=== PATIENT | female | born 1965 | race Caucasian/White ===

== ENCOUNTER 2020-04-02 08:02 | Inpatient (IN) | payer BC ==
[~2020-04-02] VITALS: Ht 162.6 cm; Wt 125.0 kg
--- NOTE | 2020-04-02 08:27 | PHYS DOC ---
Past Medical History Past Medical History: Seizure Past Medical History THYROID DISEASE Past Surgical History thyroidectomy Drug Use: None General Adult EDM: Chief Complaint: WEAKNESS/GENERALIZED HPI: HPI: Patient is a 54 year old female who presents with a 3-day history of progressive left lower extremity weakness. Patient states she had some discomfort in her left thigh but has been increasingly unable to use her left leg over the last 3 days. Patient states she is had intermittent symptoms like this in the past of past several years but resolve on their own. Patient denies any numbness or bowel or bladder incontinence patient denies any back pain or fevers. Patient denies any procedures on her back. Patient also describes some clumsiness with her right hand over the last 3 days. Patient denies any visual disturbance. Symptoms are worse with range of motion of the left leg. Review of Systems: Review of Systems: Constitutional: Denies fever or chills. [] Eyes: Denies change in visual acuity. [] HENT: Denies nasal congestion or sore throat. [] Respiratory: Denies cough or shortness of breath. [] Cardiovascular: Denies chest pain or edema. [] GI: Denies abdominal pain, nausea, vomiting, bloody stools or diarrhea. [] : Denies dysuria. [] Musculoskeletal: Denies back pain or joint pain. [] Integument: Denies rash. [] Neurologic: Denies headache, but has weakness in the left leg and clumsiness with right hand patient denies any sensory deficits, patient denies bowel or bladder incontinence Endocrine: Denies polyuria or polydipsia. [] Lymphatic: Denies swollen glands. [] Psychiatric: Denies depression or anxiety. [] Heart Score: Risk Factors: Risk Factors: DM, Current or recent (<one month) smoker, HTN, HLP, family history of CAD, obesity. Risk Scores: Score 0 - 3: 2.5% MACE over next 6 weeks - Discharge Home Score 4 - 6: 20.3% MACE over next 6 weeks - Admit for Clinical Observation Score 7 - 10: 72.7% MACE over next 6 weeks - Early Invasive Strategies Allergies: Allergies: Allergies Coded Allergies Type Severity Reaction Last Updated Verified metoclopramide Allergy Unknown 04/02/20 Yes Physical Exam: PE: Constitutional: Well developed, well nourished, no acute distress, non-toxic appearance. [] HENT: Normocephalic, atraumatic, bilateral external ears normal, no trismus nose normal. [] Eyes: PERRLA, EOMI, conjunctiva normal, no discharge. [] Neck: Normal range of motion, no tenderness, supple, no stridor. [] Cardiovascular:Heart rate regular rhythm, peripheral pulses intact, cap refill brisk Lungs & Thorax: Bilateral breath sounds clear, no respiratory distress Abdomen:, soft, no tenderness, no masses, no pulsatile masses. [] Skin: Warm, dry, no erythema, no rash. [] Back: No tenderness, no CVA tenderness. [] Extremities: No tenderness, no cyanosis, no clubbing, ROM intact, no edema. [] Neurologic: Alert and oriented X 3, weakness with dorsiflexion of the left foot, weakness in the right hand, normal sensory function, ataxia with the right hand Psychologic: Affect normal, judgement normal, mood normal. [] Current Patient Data: Labs: Laboratory Tests Test 04/02/20 08:20 White Blood Count 7.1 x10^3/uL Red Blood Count 5.51 x10^6/uL Hemoglobin 12.8 g/dL Hematocrit 39.0 % Mean Corpuscular Volume 71 fL Mean Corpuscular Hemoglobin 23 pg Mean Corpuscular Hemoglobin Concent 33 g/dL Red Cell Distribution Width 18.9 % Platelet Count 293 x10^3/uL Neutrophils (%) (Auto) 66 % Lymphocytes (%) (Auto) 24 % Monocytes (%) (Auto) 5 % Eosinophils (%) (Auto) 4 % Basophils (%) (Auto) 1 % Neutrophils # (Auto) 4.7 x10^3/uL Lymphocytes # (Auto) 1.7 x10^3/uL Monocytes # (Auto) 0.4 x10^3/uL Eosinophils # (Auto) 0.2 x10^3/uL Basophils # (Auto) 0.1 x10^3/uL Platelet Estimate Adequate Hypochromasia Present Microcytosis Present Sodium Level 139 mmol/L Potassium Level 3.8 mmol/L Chloride Level 101 mmol/L Carbon Dioxide Level 28 mmol/L Anion Gap 10 Blood Urea Nitrogen 11 mg/dL Creatinine 1.0 mg/dL Estimated GFR (Cockcroft-Gault) 58.2 BUN/Creatinine Ratio 11 Glucose Level 103 mg/dL Calcium Level 9.0 mg/dL Total Bilirubin 0.2 mg/dL Aspartate Amino Transf (AST/SGOT) 25 U/L Alanine Aminotransferase (ALT/SGPT) 37 U/L Alkaline Phosphatase 71 U/L Creatine Kinase 440 U/L Total Protein 7.8 g/dL Albumin 4.1 g/dL Albumin/Globulin Ratio 1.1 Thyroid Stimulating Hormone (TSH) 124.222 uIU/mL Current Medications Medications (Trade) Dose Ordered Sig/Jas Route PRN Reason Start Time Stop Time Status Last Admin Dose Admin Ondansetron HCl (Zofran) 4 mg PRN Q8HRS PRN IV NAUSEA/VOMITING 04/02/20 10:30 04/03/20 10:29 Vital Signs: Vital Signs Date Time Temp Pulse Resp B/P (MAP) Pulse Ox O2 Delivery O2 Flow Rate FiO2 04/02/20 08:13 98.7 88 20 181/107 (131) 94 Room Air 98.7 EKG: EKG: EKG interpreted by ky normal sinus rhythm with a rate of 78 normal axis normal intervals nonspecific ST changes [] Radiology/Procedures: Radiology/Procedures: [][facility] [address] [place] [address] IMAGING REPORT Signed PATIENT: ELIO MOLINA ACCOUNT: [id number] : 1965 LOCATION: ER AGE: 54 SEX: F EXAM STATUS: REG ER ORD. PHYSICIAN: ANASTACIA CHEATHAM MD REASON: left leg weakness PROCEDURE: PORTABLE CHEST 1V EXAM: CHEST 1 VIEW History: Left leg weakness COMPARISON: None available. TECHNIQUE: Single portable radiograph of the chest FINDINGS: The cardiac silhouette is unremarkable. The lungs are clear bilaterally. The costophrenic sulci are clear and well demarcated. IMPRESSION: No radiographic evidence of an acute cardiopulmonary process. Electronically signed by: Ravinder Ruth MD (04/02/2020 8:46 AM) [id number] DICTATED and SIGNED BY: RAVINDER RUTH MD DATE: 04/02/20 [id number] [place], [place] [id number] IMAGING REPORT Signed PATIENT: ELIO MOLINA ACCOUNT: [id number] : 1965 LOCATION: ER AGE: 54 SEX: F EXAM STATUS: REG ER ORD. PHYSICIAN: ANASTACIA CHEATHAM MD REASON: left leg weakness PROCEDURE: CT HEAD WO CONTRAST CT HEAD INDICATION: Reason: left leg weakness / Spl. Instructions: / History: COMPARISON: None Available. Exposure: One or more of the following individualized dose reduction techniques were utilized for this examination: 1. Automated exposure control 2. Adjustment of the mA and/or kV according to patient size 3. Use of iterative reconstruction technique TECHNIQUE: 5 mm contiguous axial images were obtained from the skull base to the vertex in both bone and soft tissue algorithm. FINDINGS: Minimal bilateral periventricular white matter hypodensities likely chronic small vessel ischemic disease. No evidence of acute intracranial hemorrhage. No extra-axial fluid collections. No mass effect or midline shift. Ventricular size is appropriate. Basal cisterns are patent. No fractures identified.Antoine-white differentiation is preserved.Globes and orbits are within normal limits. Paranasal sinuses and mastoid air cells are clear. IMPRESSION: No acute intracranial findings. Electronically signed by: Ravinder Ruth MD (04/02/2020 9:25 AM) [id number] DICTATED and SIGNED BY: RAVINDER RUTH MD DATE: 04/02/20924 Course & Med Decision Making: Course & Med Decision Making Pertinent Labs and Imaging studies reviewed. (See chart for details) [] 54-year-old female presents with left leg weakness as well as ataxia in the right hand. Patient found to have profound hypothyroidism as well. Patient has no fever to suggest epidural process I am concerned that the patient may have some degenerative neurological condition that may be causing her symptoms. Patient will be admitted to Dr. Burnette for consults placed with neurology. Anna Disclaimer: Anna Disclaimer: This electronic medical record was generated, in whole or in part, using a voice recognition dictation system. Departure Departure Impression: Primary Impression: Left leg weakness Additional Impression: HYPOTHYROIDISM, UNSPECIFIED Disposition: ADMITTED INPATIENT Admitting Physician: IVET (RUBA) Condition: STABLE Justicifation of Admission Dx: Justifications for Admission: Justification of Admission Dx: Yes Comments: HYPOTHYROIDISM, LEFT LEG WEAKNESS ANASTACIA CHEATHAM MD Apr 02, 2020 08:27
[2020-04-02 08:33] LABS: BASO # 0.1 x10^3/uL (0.0-0.2); BASO % 1 % (0-3); EOS # 0.2 x10^3/uL (0.0-0.7); EOS % 4 % (0-3); HEMOGLOBIN 12.8 g/dL (12.0-15.5); LYMPH # 1.7 x10^3/uL (1.0-4.8); LYMPH % 24 % (24-48); MEAN CORPUSCULAR HEMOGLOBIN 23 pg (25-35); MEAN CORPUSCULAR HGB CONC 33 g/dL (31-37); MEAN CORPUSCULAR VOLUME 71 fL (79-100); MONO # 0.4 x10^3/uL (0.0-1.1); MONO % 5 % (0-9); NEUT # 4.7 x10^3/uL (1.8-7.7); NEUT % 66 % (31-73); PLATELET COUNT 293 x10^3/uL (140-400); RED BLOOD COUNT 5.51 x10^6/uL (3.50-5.40); RED CELL DISTRIBUTION WIDTH 18.9 % (11.5-14.5); WHITE BLOOD COUNT 7.1 x10^3/uL (4.0-11.0)
[2020-04-02 08:46] LABS: GFR 58.2; POTASSIUM 3.8 mmol/L (3.5-5.1)
--- NOTE | 2020-04-02 08:49 | RAD ---
EXAM: CHEST 1 VIEW History: Left leg weakness COMPARISON: None available. TECHNIQUE: Single portable radiograph of the chest FINDINGS: The cardiac silhouette is unremarkable. The lungs are clear bilaterally. The costophrenic sulci are clear and well demarcated. IMPRESSION: No radiographic evidence of an acute cardiopulmonary process. Electronically signed by: Ravinder Ruth MD (04/02/2020 8:46 AM) [id number]
[2020-04-02 08:52] LABS: ALBUMIN 4.1 g/dL (3.4-5.0); ALBUMIN/GLOBULIN RATIO 1.1 (1.0-1.7); TOTAL BILIRUBIN 0.2 mg/dL (0.2-1.0); TOTAL PROTEIN 7.8 g/dL (6.4-8.2)
--- NOTE | 2020-04-02 09:28 | RAD ---
CT HEAD INDICATION: Reason: left leg weakness / Spl. Instructions: / History: COMPARISON: None Available. Exposure: One or more of the following individualized dose reduction techniques were utilized for this examination: 1. Automated exposure control 2. Adjustment of the mA and/or kV according to patient size 3. Use of iterative reconstruction technique TECHNIQUE: 5 mm contiguous axial images were obtained from the skull base to the vertex in both bone and soft tissue algorithm. FINDINGS: Minimal bilateral periventricular white matter hypodensities likely chronic small vessel ischemic disease. No evidence of acute intracranial hemorrhage. No extra-axial fluid collections. No mass effect or midline shift. Ventricular size is appropriate. Basal cisterns are patent. No fractures identified.Antoine-white differentiation is preserved.Globes and orbits are within normal limits. Paranasal sinuses and mastoid air cells are clear. IMPRESSION: No acute intracranial findings. Electronically signed by: Ravinder Ruth MD (04/02/2020 9:25 AM) [id number]
[2020-04-02 10:12] LABS: PLT ESTIMATE ADEQUATE (ADEQUATE)
[2020-04-02 10:13] LABS: HYPOCHROMIA PRESENT; MICROCYTOSIS PRESENT
[2020-04-02] MEDS ORDERED: ONDANSETRON PF 4 MG/2 ML VIAL. IV PRN (10:30)
[2020-04-02] MEDS ORDERED: DOCUSATE SODIUM 100 MG CAPSULE. PO PRN ×2 (14:15)
[2020-04-02] MEDS ORDERED: ONDANSETRON PF 4 MG/2 ML VIAL. IVP PRN (14:15)
[2020-04-02] MEDS ORDERED: DEXTROSE 50% 25 GM / 50ML DISP.SYRIN. IV PRN (14:15)
[2020-04-02] MEDS ORDERED: POTASSIUM CHLORIDE 10MEQ 100 ML IV SCH (14:15)
[2020-04-02] MEDS ORDERED: POTASSIUM CHLORIDE 10MEQ 100 ML IV PRN (14:15)
[2020-04-02] MEDS ORDERED: POTASSIUM CHLORIDE 20 MEQ TABLET.ER. PO PRN (14:15)
[2020-04-02] MEDS ORDERED: SENNOSIDES 8.6 MG TABLET PO PRN (14:15)
[2020-04-02] MEDS ORDERED: MAGNESIUM SULFATE 2GM 50 ML IV SCH (14:15)
--- NOTE | 2020-04-02 14:34 | PDOC1 ---
History and Physical Date of Service: DOS: DATE: 04/02/20 TIME: 14:20 Chief Complaint: Chief Complain: Worsening weakness of her left lower extremity History of Present Illness: HPI: Patient is a 54-year-old female with past medical history of hypothyroidism, goiter status post thyroidectomy, history of unprovoked seizures, who presents to the ED with a 3-day history of worsening weakness of her left lower extremity. Patient states that she has had on and off weakness of her left lower extremity that woke her and get worse but will spontaneously improve. This has been going on for the past 5 to 6 years however it has been becoming more frequent. Her last episode was in May 2019. Patient also experiences right hand weakness. She is unable to hold a pen. Patient does also endorse some unsteadiness during walking and feels like she is about to fall and bumped into objects around her house.Patient denies any numbness or bowel or bladder incontinence patient denies any back pain or fevers. Patient denies any procedures on her back. Patient denies any visual disturbance or diplopia. Denies risky sexual activity. She does endorse being and having 2 children. 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 Patient states that she does have compliance with her thyroid medication and she does take this in the morning before her meals. She does not recall if she is ever had iron deficiency anemia. There are no family history of celiac's disease or multiple sclerosis in the family. Patient was seen in the ED and she was having left lower leg weakness. Patient is able to flex her hip however she is unable to dorsi or plantarflex well with her left foot. 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 Patient's gait is unsteady. Romberg sign is negative Past Medical/Surgical History: PMH/PSH: Past Medical History: Seizure, hypothyroidism, Goiter Past Surgical History: thyroidectomy Allergies: Allergies: Coded Allergies: metoclopramide (Verified Allergy, Intermediate, 04/02/20) Family History: Family History: Reviewed and none reported Social History: Social History: Denies alcohol, drug, tobacco abuse. Current Medications: Current Medications Current Medications Ondansetron HCl (Zofran) 4 mg PRN Q8HRS PRN IV NAUSEA/VOMITING; Start 04/02/20 at 10:30; Stop 04/03/20 at 10:29 ROS: Review of Systems Review of System REVIEW OF SYSTEMS: GENERAL: Denies weakness SKIN: No bruising, hair changes or rashes. EYES: No blurred, double or loss of vision. NOSE AND THROAT: No history of nosebleeds, hoarseness or sore throat. HEART: No history of palpitations, chest pain or shortness of breath on exertion. LUNGS: Denies cough, hemoptysis, wheezing or shortness of breath. GASTROINTESTINAL: Denies changes in appetite, nausea, vomiting, diarrhea or constipation. GENITOURINARY: No history of frequency, urgency, hesitancy or nocturia. NEUROLOGIC: Denies history of numbness, tingling, or tremor. PSYCHIATRIC: No history of panic, anxiety or depression. ENDOCRINE: No history of heat or cold intolerance, polyuria or polydipsia. EXTREMITIES: Denies joint pain, pain on walking or stiffness. Physical Exam: Vital Signs: Vital Signs Date Time Temp Pulse Resp B/P (MAP) Pulse Ox O2 Delivery O2 Flow Rate FiO2 04/02/20 13:00 68 99 04/02/20 08:13 98.7 20 181/107 (131) Room Air 98.7 Physcial Exam: GEN: No apparent distress. Alert and oriented HEENT: Normal cephalic, atraumatic, external auditory canals are patent EYES: Extraocular muscles are intact, pupil are equally round and reactive to light and accommodation MUSCULOSKELETAL: Well developed , well nourished, good range of motion ENDOCRINE: No thyromegaly was palpated LYMPHATICS: No cervical chain or axillary nodes were noted HEMATOPOIETIC: No bruising NECK: Supple, no JVD, no thyromegaly was noted LUNGS: Clear to auscultation in all lung de jesus without rhonchi or wheezing HEART: RRR, S!, S2 present. Peripheral pulses intact, no obvious murmurs noted ABDOMEN: Soft, nontender. Positive bowel sounds, no organomegaly, normal bowel sounds EXTREMITIES: Without clubbing, cyanosis, or edema. Pedal pulses intact. Negative Homans sign NEUROLOGIC: Normal speech and tone. A&O x 3, Patient is able to flex her hip however she is unable to dorsi or plantarflex well with her left foot. 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 Patient's gait is unsteady. Romberg sign is negative PSYCHIATRIC: Normal affect, normal mood. Stable SKIN: No ulcerations or rashes, good skin turgor, no jaundice VASCULAR: Good capillary refill, neurovascular bundle appears to be intact Labs: Labs: Laboratory Tests Test 04/02/20 08:20 White Blood Count 7.1 x10^3/uL (4.0-11.0) Red Blood Count 5.51 x10^6/uL (3.50-5.40) Hemoglobin 12.8 g/dL (12.0-15.5) Hematocrit 39.0 % (36.0-47.0) Mean Corpuscular Volume 71 fL (79-100) Mean Corpuscular Hemoglobin 23 pg (25-35) Mean Corpuscular Hemoglobin Concent 33 g/dL (31-37) Red Cell Distribution Width 18.9 % (11.5-14.5) Platelet Count 293 x10^3/uL (140-400) Neutrophils (%) (Auto) 66 % (31-73) Lymphocytes (%) (Auto) 24 % (24-48) Monocytes (%) (Auto) 5 % (0-9) Eosinophils (%) (Auto) 4 % (0-3) Basophils (%) (Auto) 1 % (0-3) Neutrophils # (Auto) 4.7 x10^3/uL (1.8-7.7) Lymphocytes # (Auto) 1.7 x10^3/uL (1.0-4.8) Monocytes # (Auto) 0.4 x10^3/uL (0.0-1.1) Eosinophils # (Auto) 0.2 x10^3/uL (0.0-0.7) Basophils # (Auto) 0.1 x10^3/uL (0.0-0.2) Platelet Estimate Adequate (ADEQUATE) Hypochromasia Present Microcytosis Present Sodium Level 139 mmol/L (136-145) Potassium Level 3.8 mmol/L (3.5-5.1) Chloride Level 101 mmol/L (98-107) Carbon Dioxide Level 28 mmol/L (21-32) Anion Gap 10 (6-14) Blood Urea Nitrogen 11 mg/dL (7-20) Creatinine 1.0 mg/dL (0.6-1.0) Estimated GFR (Cockcroft-Gault) 58.2 BUN/Creatinine Ratio 11 (6-20) Glucose Level 103 mg/dL (70-99) Calcium Level 9.0 mg/dL (8.5-10.1) Total Bilirubin 0.2 mg/dL (0.2-1.0) Aspartate Amino Transf (AST/SGOT) 25 U/L (15-37) Alanine Aminotransferase (ALT/SGPT) 37 U/L (14-59) Alkaline Phosphatase 71 U/L (46-116) Creatine Kinase 440 U/L (26-192) Total Protein 7.8 g/dL (6.4-8.2) Albumin 4.1 g/dL (3.4-5.0) Albumin/Globulin Ratio 1.1 (1.0-1.7) Thyroid Stimulating Hormone (TSH) 124.222 uIU/mL (0.358-3.74) Laboratory Tests Test 04/02/20 08:20 White Blood Count 7.1 x10^3/uL (4.0-11.0) Red Blood Count 5.51 x10^6/uL (3.50-5.40) Hemoglobin 12.8 g/dL (12.0-15.5) Hematocrit 39.0 % (36.0-47.0) Mean Corpuscular Volume 71 fL (79-100) Mean Corpuscular Hemoglobin 23 pg (25-35) Mean Corpuscular Hemoglobin Concent 33 g/dL (31-37) Red Cell Distribution Width 18.9 % (11.5-14.5) Platelet Count 293 x10^3/uL (140-400) Neutrophils (%) (Auto) 66 % (31-73) Lymphocytes (%) (Auto) 24 % (24-48) Monocytes (%) (Auto) 5 % (0-9) Eosinophils (%) (Auto) 4 % (0-3) Basophils (%) (Auto) 1 % (0-3) Neutrophils # (Auto) 4.7 x10^3/uL (1.8-7.7) Lymphocytes # (Auto) 1.7 x10^3/uL (1.0-4.8) Monocytes # (Auto) 0.4 x10^3/uL (0.0-1.1) Eosinophils # (Auto) 0.2 x10^3/uL (0.0-0.7) Basophils # (Auto) 0.1 x10^3/uL (0.0-0.2) Platelet Estimate Adequate (ADEQUATE) Hypochromasia Present Microcytosis Present Sodium Level 139 mmol/L (136-145) Potassium Level 3.8 mmol/L (3.5-5.1) Chloride Level 101 mmol/L (98-107) Carbon Dioxide Level 28 mmol/L (21-32) Anion Gap 10 (6-14) Blood Urea Nitrogen 11 mg/dL (7-20) Creatinine 1.0 mg/dL (0.6-1.0) Estimated GFR (Cockcroft-Gault) 58.2 BUN/Creatinine Ratio 11 (6-20) Glucose Level 103 mg/dL (70-99) Calcium Level 9.0 mg/dL (8.5-10.1) Total Bilirubin 0.2 mg/dL (0.2-1.0) Aspartate Amino Transf (AST/SGOT) 25 U/L (15-37) Alanine Aminotransferase (ALT/SGPT) 37 U/L (14-59) Alkaline Phosphatase 71 U/L (46-116) Creatine Kinase 440 U/L (26-192) Total Protein 7.8 g/dL (6.4-8.2) Albumin 4.1 g/dL (3.4-5.0) Albumin/Globulin Ratio 1.1 (1.0-1.7) Thyroid Stimulating Hormone (TSH) 124.222 uIU/mL (0.358-3.74) Images: Images Head CT IMPRESSION: No acute intracranial findings. Assessment/Plan Assessment/Plan Acute left lower extremity and right hand weakness concerning for multiple sclerosis versus hypothyroid myopathy elevated TSH concerning for uncontrolled hypothyroidism versus malabsorption Elevated CK levels Admit to medicine for further management Neurology consult Pending T3 and T4 levels Pending cortisol levels Pending vitamin D levels Start levothyroxine at 175 mcg daily Lovenox for DVT prophylaxis Regular diet Full code Discussed with RN and SW Disposition inpatient care, pending neurology consult Surrogate decision maker is the Justifications for Admission Other Justification Left lower leg weakness and severe hypothyroidism PADILLA YEH MD Apr 02, 2020 14:34
[2020-04-02 15:00] VITALS: BP 150/94
[2020-04-02] MEDS ORDERED: ELECTROLYTE (NON-ICU) PROTOCOL MC PRN (15:00)
--- NOTE | 2020-04-02 16:30 | PDOC2 ---
NEUROLOGY CONSULT Date of Service DOS: DATE: 04/02/20 TIME: 16:22 Reason for Consult Reason for Consult: Left leg weakness Referring Physician Referring Physician: Dr. Burnette PCP: Dr. Garland Source Source: Chart review, Patient History of Present Illness History of Present Illness The patient is a 54-year-old right-handed female who for the past 3 days has had left leg weakness. She cannot move the left foot. She has noticed some clumsiness of the right hand. She has had episodes of left leg weakness dating back several years. She says that her primary physician checked her thyroid, but the patient has not seen any specialist regarding this problem nor has she had any imaging. She says that she has the weakness for up to several days and then it goes away on its own. This time the weakness is more profound and she is having trouble walking. There is no headache, diplopia, dysphagia, dysarthria, numbness, cognitive change, neck, or back pain. She does have a history of seizures, but her last seizure was several years ago and she is no longer on anticonvulsants. She does not remember what she took. She denies any stress in her life. There is no history of head injury. 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, no alcohol or street drugs Current Medications Current Medications Current Medications Ondansetron HCl (Zofran) 4 mg PRN Q8HRS PRN IV NAUSEA/VOMITING; Start 04/02/20 at 10:30; Stop 04/03/20 at 10:29 Sennosides (Senna) 17.2 mg PRN BID PRN PO CONSTIPATION; Start 04/02/20 at 14:15 Docusate Sodium (Colace) 100 mg PRN DAILY PRN PO HARD STOOLS; Start 04/02/20 at 14:15 Thiamine HCl 100 mg/Dextrose 51 ml @ 102 mls/hr DAILY IV ; Start 04/02/20 at 15:00 Ondansetron HCl (Zofran) 4 mg PRN Q6HRS PRN IVP NAUSEA/VOMITING; Start 04/02/20 at 14:15 Potassium Chloride (Klor-Con) 40 meq 1X PRN PO PER PROTOCOL; Start 04/02/20 at 14:15; Status UNV Magnesium Oxide (Magnesium Oxide) 400 mg BID PO ; Start 04/02/20 at 21:00; Stop 04/04/20 at 09:01; Status UNV Potassium Chloride/Water 100 ml @ 100 mls/hr Q1H IV ; Start 04/02/20 at 14:15; Stop 04/02/20 at 18:14; Status UNV Magnesium Sulfate 50 ml @ 25 mls/hr Q24H IV ; Start 04/02/20 at 14:15; Stop 04/04/20 at 16:14; Status UNV Potassium Chloride/Water 100 ml @ 100 mls/hr Q1H PRN IV low k; Start 04/02/20 at 14:15; Status UNV Dextrose (Dextrose 50%-Water Syringe) 12.5 gm PRN Q15MIN PRN IV SEE COMMENTS; Start 04/02/20 at 14:15 Acetaminophen (Tylenol) 650 mg PRN Q4HRS PRN PO TEMP OVER 100.4F OR MILD PAIN; Start 04/02/20 at 14:15 Docusate Sodium (Colace) 100 mg PRN BID PRN PO HARD STOOLS; Start 04/02/20 at 14:15 Levothyroxine Sodium (Synthroid) 175 mcg DAILY06 PO ; Start 04/03/20 at 06:00 Info (Non-Icu Electrolyte Protocol) 1 ea CONT PRN PRN MC SEE COMMENTS; Start 04/02/20 at 15:00 Allergies Allergies: Coded Allergies: metoclopramide (Verified Allergy, Intermediate, 04/02/20) ROS Review of System Negative for fever, chills, weight loss, shortness of breath, chest pain, katy gestion, hematochezia, melena, and dysuria. Full 14-point review of systems is negative. Physical Exam Physical Examination General: Well-developed, well-nourished white female in no acute distress HEENT: Normocephalic andatraumatic. Temporal arteriespulsatile and nontender. Neck: Supple without bruit, no meningismus Musculoskeletal: Stability:see neurologic. Gait exam:see neurologic. Tone:see neurologic.Strength:see neurologic. Neurological: Mental Status:intact, orientation, memory, attention span/concentration, language, fund of knowledge normal. Cranial Nerves:Pupils equal and reactive to light, extraocular movements areintact, visual de jesus are full to confrontation. Facial sensation is normal. There is no facial asymmetry. Vestibulo-ocular reflex is intact. Palate elevates and tongue protrudes in midline. All other cranial related problems are negative except as mentioned before.Reflexes:2+ and symmetric with flexor plantar responses. Motor:2-3/5 left foot weakness both dorsi and plantar flexion, but no drift of the left leg. In the right arm there is giveaway weakness of the right hand, no pronator drift. Strength is otherwise 5/5 strength with normal tone and bulk. Coordination:Finger-nose finger and [id number]-[id number] testing are normal. Rapid alternating movements and fine finger movements are intact. Gait:Consistent with left foot weakness, but very no circumduction. Sensory:Patchy loss, distal left lower extremity, circumferential with a sharp line of demarcation. Vitals VITALS Vital Signs Date Time Temp Pulse Resp B/P (MAP) Pulse Ox O2 Delivery O2 Flow Rate FiO2 04/02/20 14:39 76 98 04/02/20 08:13 98.7 20 181/107 (131) Room Air 98.7 Labs Labs Laboratory Tests Test 04/02/20 08:20 White Blood Count 7.1 x10^3/uL (4.0-11.0) Red Blood Count 5.51 x10^6/uL (3.50-5.40) Hemoglobin 12.8 g/dL (12.0-15.5) Hematocrit 39.0 % (36.0-47.0) Mean Corpuscular Volume 71 fL (79-100) Mean Corpuscular Hemoglobin 23 pg (25-35) Mean Corpuscular Hemoglobin Concent 33 g/dL (31-37) Red Cell Distribution Width 18.9 % (11.5-14.5) Platelet Count 293 x10^3/uL (140-400) Neutrophils (%) (Auto) 66 % (31-73) Lymphocytes (%) (Auto) 24 % (24-48) Monocytes (%) (Auto) 5 % (0-9) Eosinophils (%) (Auto) 4 % (0-3) Basophils (%) (Auto) 1 % (0-3) Neutrophils # (Auto) 4.7 x10^3/uL (1.8-7.7) Lymphocytes # (Auto) 1.7 x10^3/uL (1.0-4.8) Monocytes # (Auto) 0.4 x10^3/uL (0.0-1.1) Eosinophils # (Auto) 0.2 x10^3/uL (0.0-0.7) Basophils # (Auto) 0.1 x10^3/uL (0.0-0.2) Platelet Estimate Adequate (ADEQUATE) Hypochromasia Present Microcytosis Present Sodium Level 139 mmol/L (136-145) Potassium Level 3.8 mmol/L (3.5-5.1) Chloride Level 101 mmol/L (98-107) Carbon Dioxide Level 28 mmol/L (21-32) Anion Gap 10 (6-14) Blood Urea Nitrogen 11 mg/dL (7-20) Creatinine 1.0 mg/dL (0.6-1.0) Estimated GFR (Cockcroft-Gault) 58.2 BUN/Creatinine Ratio 11 (6-20) Glucose Level 103 mg/dL (70-99) Calcium Level 9.0 mg/dL (8.5-10.1) Total Bilirubin 0.2 mg/dL (0.2-1.0) Aspartate Amino Transf (AST/SGOT) 25 U/L (15-37) Alanine Aminotransferase (ALT/SGPT) 37 U/L (14-59) Alkaline Phosphatase 71 U/L (46-116) Creatine Kinase 440 U/L (26-192) Total Protein 7.8 g/dL (6.4-8.2) Albumin 4.1 g/dL (3.4-5.0) Albumin/Globulin Ratio 1.1 (1.0-1.7) Thyroid Stimulating Hormone (TSH) 124.222 uIU/mL (0.358-3.74) Laboratory Tests Test 04/02/20 08:20 White Blood Count 7.1 x10^3/uL (4.0-11.0) Red Blood Count 5.51 x10^6/uL (3.50-5.40) Hemoglobin 12.8 g/dL (12.0-15.5) Hematocrit 39.0 % (36.0-47.0) Mean Corpuscular Volume 71 fL (79-100) Mean Corpuscular Hemoglobin 23 pg (25-35) Mean Corpuscular Hemoglobin Concent 33 g/dL (31-37) Red Cell Distribution Width 18.9 % (11.5-14.5) Platelet Count 293 x10^3/uL (140-400) Neutrophils (%) (Auto) 66 % (31-73) Lymphocytes (%) (Auto) 24 % (24-48) Monocytes (%) (Auto) 5 % (0-9) Eosinophils (%) (Auto) 4 % (0-3) Basophils (%) (Auto) 1 % (0-3) Neutrophils # (Auto) 4.7 x10^3/uL (1.8-7.7) Lymphocytes # (Auto) 1.7 x10^3/uL (1.0-4.8) Monocytes # (Auto) 0.4 x10^3/uL (0.0-1.1) Eosinophils # (Auto) 0.2 x10^3/uL (0.0-0.7) Basophils # (Auto) 0.1 x10^3/uL (0.0-0.2) Platelet Estimate Adequate (ADEQUATE) Hypochromasia Present Microcytosis Present Sodium Level 139 mmol/L (136-145) Potassium Level 3.8 mmol/L (3.5-5.1) Chloride Level 101 mmol/L (98-107) Carbon Dioxide Level 28 mmol/L (21-32) Anion Gap 10 (6-14) Blood Urea Nitrogen 11 mg/dL (7-20) Creatinine 1.0 mg/dL (0.6-1.0) Estimated GFR (Cockcroft-Gault) 58.2 BUN/Creatinine Ratio 11 (6-20) Glucose Level 103 mg/dL (70-99) Calcium Level 9.0 mg/dL (8.5-10.1) Total Bilirubin 0.2 mg/dL (0.2-1.0) Aspartate Amino Transf (AST/SGOT) 25 U/L (15-37) Alanine Aminotransferase (ALT/SGPT) 37 U/L (14-59) Alkaline Phosphatase 71 U/L (46-116) Creatine Kinase 440 U/L (26-192) Total Protein 7.8 g/dL (6.4-8.2) Albumin 4.1 g/dL (3.4-5.0) Albumin/Globulin Ratio 1.1 (1.0-1.7) Thyroid Stimulating Hormone (TSH) 124.222 uIU/mL (0.358-3.74) Images Images CT HEAD INDICATION: Reason: left leg weakness / Spl. Instructions: / History: COMPARISON: None Available. Exposure: One or more of the following individualized dose reduction techniques were utilized for this examination: 1. Automated exposure control 2. Adjustment of the mA and/or kV according to patient size 3. Use of iterative reconstruction technique TECHNIQUE: 5 mm contiguous axial images were obtained from the skull base to the vertex in both bone and soft tissue algorithm. FINDINGS: Minimal bilateral periventricular white matter hypodensities likely chronic small vessel ischemic disease. No evidence of acute intracranial hemorrhage. No extra-axial fluid collections. No mass effect or midline shift. Ventricular size is appropriate. Basal cisterns are patent. No fractures identified.Antoine-white differentiation is preserved.Globes and orbits are within normal limits. Paranasal sinuses and mastoid air cells are clear. IMPRESSION: No acute intracranial findings. Assessment/Plan Assessment/Plan Impression: Right hand weakness and clumsiness, left foot weakness, hard to reconcile this on the basis of any organic neurological issue. Multiple sclerosis needs to be excluded. Multiple entrapment neuropathies are possible but unlikely to occur simultaneously and wax and wane for a few days at a time over several years. I find no evidence of cervical or lumbar radiculopathy, myelopathy, peripheral neuropathy. The distribution of weakness in the left foot is unusual. Note normal head CT. However, she is profoundly hypothyroid which can mimic all sorts of neurological issues. History of seizures, resolved. Recommendations: I will start with an MRI of the brain and make further work-up recommendations after that. As the symptoms have been going on for a few days, the MRI can be done on a routine basis, tomorrow if necessary Additional laboratory studies Rehabilitation modalities Treatment of hypothyroidism Thank you for letting me help with the patient's care. LUCY JACKSON MD Apr 02, 2020 16:30
[2020-04-02] MEDS: THIAMINE INJ 100 MG in IV DEXTROSE 5% 50 ML IV SCH (18:07)
[2020-04-02 19:00] VITALS: BP 131/83
[2020-04-02] MEDS ORDERED: MAGNESIUM OXIDE 400 MG TABLET PO SCH (21:00)
[2020-04-02 23:00] VITALS: BP 102/59
[2020-04-03 03:00] VITALS: BP 99/60
[2020-04-03 06:08] LABS: BASO # 0.1 x10^3/uL (0.0-0.2); BASO % 1 % (0-3); EOS # 0.3 x10^3/uL (0.0-0.7); EOS % 4 % (0-3); HEMATOCRIT 35.6 % (36.0-47.0); HEMOGLOBIN 11.5 g/dL (12.0-15.5); LYMPH # 2.3 x10^3/uL (1.0-4.8); LYMPH % 36 % (24-48); MEAN CORPUSCULAR HEMOGLOBIN 23 pg (25-35); MEAN CORPUSCULAR HGB CONC 32 g/dL (31-37); MEAN CORPUSCULAR VOLUME 71 fL (79-100); MONO # 0.3 x10^3/uL (0.0-1.1); MONO % 5 % (0-9); NEUT # 3.4 x10^3/uL (1.8-7.7); NEUT % 53 % (31-73); PLATELET COUNT 254 x10^3/uL (140-400); RED BLOOD COUNT 5.03 x10^6/uL (3.50-5.40); RED CELL DISTRIBUTION WIDTH 19.1 % (11.5-14.5); WHITE BLOOD COUNT 6.4 x10^3/uL (4.0-11.0)
[2020-04-03 06:10] LABS: CALCIUM 8.2 mg/dL (8.5-10.1); CREATININE 0.9 mg/dL (0.6-1.0); GFR 65.8; MAGNESIUM 2.4 mg/dL (1.8-2.4); POTASSIUM 3.6 mmol/L (3.5-5.1)
[2020-04-03] MEDS: LEVOTHYROXINE 175 MCG TABLET PO SCH (06:29)
[2020-04-03 07:00] VITALS: BP 120/57
--- NOTE | 2020-04-03 07:23 | PDOC ---
PROGRESS NOTES Date of Service: DATE: 04/03/20 TIME: 07:22 Chief Complaint Chief Complaint Images: Images Head CT IMPRESSION: No acute intracranial findings. impression Acute left lower extremity and right hand weakness concerning for multiple sclerosis versus hypothyroid myopathy elevated TSH, extreme , concerning for uncontrolled hypothyroidism versus malabsorption Elevated CK levels possible multiple sclerosis myxedema MICROCYTIC ANEMIA plan Admit to medicine for further management Neurology consult note T3 and T4 levels Pending cortisol levels Pending vitamin D levels Start levothyroxine at 175 mcg daily Lovenox for DVT prophylaxis Regular diet Full code Discussed with RN and JEREMIAS MRI HEAD IRON PANEL ESR SU GUIAC STOOLS GI CONSULT ALDOLASE Disposition inpatient care, pending neurology consult Surrogate decision maker is the NEEDS DPOA, POA REG ADMIT 38 min pt exam, chart review, > 50% of time spent with exam, chart review, pt care coordination Justifications for Admission Justifications for Admission Other Justification Left lower leg weakness and severe hypothyroidism History of Present Illness History of Present Illness Chief Complaint: Chief Complain: Worsening weakness of her left lower extremity History of Present Illness: HPI: Patient is a 54-year-old female with past medical history of hypothyroidism, goiter status post thyroidectomy, history of unprovoked seizures, who presents to the ED with a 3-day history of worsening weakness of her left lower extremity. Patient states that she has had on and off weakness of her left lower extremity that woke her and get worse but will spontaneously improve. This has been going on for the past 5 to 6 years however it has been becoming more frequent. Her last episode was in May 2019. Patient also experiences right hand weakness. She is unable to hold a pen. Patient does also endorse some unsteadiness during walking and feels like she is about to fall and bumped into objects around her house.Patient denies any numbness or bowel or bladder incontinence patient denies any back pain or fevers. Patient denies any procedures on her back. Patient denies any visual disturbance or diplopia. Denies risky sexual activity. She does endorse being and having 2 children. 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 Patient states that she does have compliance with her thyroid medication and she does take this in the morning before her meals. She does not recall if she is ever had iron deficiency anemia. There are no family history of celiac's disease or multiple sclerosis in the family. Patient was seen in the ED and she was having left lower leg weakness. Patient is able to flex her hip however she is unable to dorsi or plantarflex well with her left foot. 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 Patient's gait is unsteady. Romberg sign is negative Past Medical/Surgical History: PMH/PSH: Past Medical History: Seizure, hypothyroidism, Goiter Past Surgical History: thyroidectomy Allergies: Allergies: Coded Allergies: metoclopramide (Verified Allergy, Intermediate, 04/02/20) Family History: Family History: obesity Social History: Social History: Denies alcohol, drug, tobacco abuse. Vitals Vitals Vital Signs Date Time Temp Pulse Resp B/P (MAP) Pulse Ox O2 Delivery O2 Flow Rate FiO2 04/03/20 03:00 97.7 73 18 99/60 (73) 96 Room Air 97.7 Physical Exam Physical Exam GEN: No apparent distress. Alert and oriented HEENT: Normal cephalic, atraumatic, external auditory canals are patent EYES: Extraocular muscles are intact, pupil are equally round and reactive to light and accommodation MUSCULOSKELETAL: Well developed , well nourished, good range of motion ENDOCRINE: No thyromegaly was palpated LYMPHATICS: No cervical chain or axillary nodes were noted HEMATOPOIETIC: No bruising NECK: Supple, no JVD, no thyromegaly was noted LUNGS: Clear to auscultation in all lung de jesus without rhonchi or wheezing HEART: RRR, S!, S2 present. Peripheral pulses intact, no obvious murmurs noted ABDOMEN: Soft, nontender. Positive bowel sounds, no organomegaly, normal bowel sounds EXTREMITIES: NO ,clubbing, cyanosis, MILD edema. Pedal pulses intact. Negative Homans sign NEUROLOGIC: Normal speech and tone. A&O x 3, Patient is able to flex her hip however she is unable to dorsi or plantarflex well with her left foot. 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 Patient's gait is unsteady. Romberg sign is negative PSYCHIATRIC: Normal affect, normal mood. Stable SKIN: No ulcerations or rashes, good skin turgor, no jaundice VASCULAR: Good capillary refill, neurovascular bundle appears to be intact General: Cooperative, mild distress Lungs: Clear Abdomen: Soft, No tenderness Extremities: No clubbing, No cyanosis Labs LABS EXAM: CHEST 1 VIEW History: Left leg weakness COMPARISON: None available. TECHNIQUE: Single portable radiograph of the chest FINDINGS: The cardiac silhouette is unremarkable. The lungs are clear bilaterally. The costophrenic sulci are clear and well demarcated. IMPRESSION: No radiographic evidence of an acute cardiopulmonary process. Electronically signed by: Ravinder Ruth MD (04/02/2020 8:46 AM) [id number] DICTATED and SIGNED BY: RAVINDER RUTH MD CT HEAD INDICATION: Reason: left leg weakness / Spl. Instructions: / History: COMPARISON: None Available. Exposure: One or more of the following individualized dose reduction techniques were utilized for this examination: 1. Automated exposure control 2. Adjustment of the mA and/or kV according to patient size 3. Use of iterative reconstruction technique TECHNIQUE: 5 mm contiguous axial images were obtained from the skull base to the vertex in both bone and soft tissue algorithm. FINDINGS: Minimal bilateral periventricular white matter hypodensities likely chronic small vessel ischemic disease. No evidence of acute intracranial hemorrhage. No extra-axial fluid collections. No mass effect or midline shift. Ventricular size is appropriate. Basal cisterns are patent. No fractures identified.Antoine-white differentiation is preserved.Globes and orbits are within normal limits. Paranasal sinuses and mastoid air cells are clear. IMPRESSION: No acute intracranial findings. Electronically signed by: Ravinder Ruth MD (04/02/2020 9:25 AM) [id number] DICTATED and SIGNED BY: RAVINDER RUTH MD Laboratory Tests Test 04/02/20 08:20 04/02/20 15:15 04/03/20 04:55 White Blood Count 7.1 x10^3/uL (4.0-11.0) 6.4 x10^3/uL (4.0-11.0) Red Blood Count 5.51 x10^6/uL (3.50-5.40) 5.03 x10^6/uL (3.50-5.40) Hemoglobin 12.8 g/dL (12.0-15.5) 11.5 g/dL (12.0-15.5) Hematocrit 39.0 % (36.0-47.0) 35.6 % (36.0-47.0) Mean Corpuscular Volume 71 fL (79-100) 71 fL (79-100) Mean Corpuscular Hemoglobin 23 pg (25-35) 23 pg (25-35) Mean Corpuscular Hemoglobin Concent 33 g/dL (31-37) 32 g/dL (31-37) Red Cell Distribution Width 18.9 % (11.5-14.5) 19.1 % (11.5-14.5) Platelet Count 293 x10^3/uL (140-400) 254 x10^3/uL (140-400) Neutrophils (%) (Auto) 66 % (31-73) 53 % (31-73) Lymphocytes (%) (Auto) 24 % (24-48) 36 % (24-48) Monocytes (%) (Auto) 5 % (0-9) 5 % (0-9) Eosinophils (%) (Auto) 4 % (0-3) 4 % (0-3) Basophils (%) (Auto) 1 % (0-3) 1 % (0-3) Neutrophils # (Auto) 4.7 x10^3/uL (1.8-7.7) 3.4 x10^3/uL (1.8-7.7) Lymphocytes # (Auto) 1.7 x10^3/uL (1.0-4.8) 2.3 x10^3/uL (1.0-4.8) Monocytes # (Auto) 0.4 x10^3/uL (0.0-1.1) 0.3 x10^3/uL (0.0-1.1) Eosinophils # (Auto) 0.2 x10^3/uL (0.0-0.7) 0.3 x10^3/uL (0.0-0.7) Basophils # (Auto) 0.1 x10^3/uL (0.0-0.2) 0.1 x10^3/uL (0.0-0.2) Platelet Estimate Adequate (ADEQUATE) Hypochromasia Present Microcytosis Present Sodium Level 139 mmol/L (136-145) 140 mmol/L (136-145) Potassium Level 3.8 mmol/L (3.5-5.1) 3.6 mmol/L (3.5-5.1) Chloride Level 101 mmol/L (98-107) 104 mmol/L (98-107) Carbon Dioxide Level 28 mmol/L (21-32) 28 mmol/L (21-32) Anion Gap 10 (6-14) 8 (6-14) Blood Urea Nitrogen 11 mg/dL (7-20) 11 mg/dL (7-20) Creatinine 1.0 mg/dL (0.6-1.0) 0.9 mg/dL (0.6-1.0) Estimated GFR (Cockcroft-Gault) 58.2 65.8 BUN/Creatinine Ratio 11 (6-20) Glucose Level 103 mg/dL (70-99) 99 mg/dL (70-99) Calcium Level 9.0 mg/dL (8.5-10.1) 8.2 mg/dL (8.5-10.1) Total Bilirubin 0.2 mg/dL (0.2-1.0) Aspartate Amino Transf (AST/SGOT) 25 U/L (15-37) Alanine Aminotransferase (ALT/SGPT) 37 U/L (14-59) Alkaline Phosphatase 71 U/L (46-116) Creatine Kinase 440 U/L (26-192) Total Protein 7.8 g/dL (6.4-8.2) Albumin 4.1 g/dL (3.4-5.0) Albumin/Globulin Ratio 1.1 (1.0-1.7) Thyroid Stimulating Hormone (TSH) 124.222 uIU/mL (0.358-3.74) Ferritin 5 ng/mL (8-252) Vitamin B12 Level 273 pg/mL (247-911) 25-Hydroxy Vitamin D Total 12.3 ng/mL (30-100) Free Thyroxine 0.20 ng/dL (0.76-1.46) Free Triiodothyronine (T3) pg/mL < 0.50 pg/mL (2.18-3.98) Total Triiodothyronine <20 ng/dL (71-180) HIV (1&2) Antibody Screen Nonreactive (Nonreactive) Phosphorus Level 4.0 mg/dL (2.6-4.7) Magnesium Level 2.4 mg/dL (1.8-2.4) C-Reactive Protein, Quantitative 2.1 mg/L (0-3.3) Assessment and Plan Assessmemt and Plan Problems Medical Problems: (1) E03.9 Status: Acute (2) Left leg weakness Status: Acute Comment Review of Relevant I have reviewed the following items cuong (where applicable) has been applied. Labs Laboratory Tests Test 04/02/20 08:20 04/02/20 15:15 04/03/20 04:55 White Blood Count 7.1 x10^3/uL (4.0-11.0) 6.4 x10^3/uL (4.0-11.0) Red Blood Count 5.51 x10^6/uL (3.50-5.40) 5.03 x10^6/uL (3.50-5.40) Hemoglobin 12.8 g/dL (12.0-15.5) 11.5 g/dL (12.0-15.5) Hematocrit 39.0 % (36.0-47.0) 35.6 % (36.0-47.0) Mean Corpuscular Volume 71 fL (79-100) 71 fL (79-100) Mean Corpuscular Hemoglobin 23 pg (25-35) 23 pg (25-35) Mean Corpuscular Hemoglobin Concent 33 g/dL (31-37) 32 g/dL (31-37) Red Cell Distribution Width 18.9 % (11.5-14.5) 19.1 % (11.5-14.5) Platelet Count 293 x10^3/uL (140-400) 254 x10^3/uL (140-400) Neutrophils (%) (Auto) 66 % (31-73) 53 % (31-73) Lymphocytes (%) (Auto) 24 % (24-48) 36 % (24-48) Monocytes (%) (Auto) 5 % (0-9) 5 % (0-9) Eosinophils (%) (Auto) 4 % (0-3) 4 % (0-3) Basophils (%) (Auto) 1 % (0-3) 1 % (0-3) Neutrophils # (Auto) 4.7 x10^3/uL (1.8-7.7) 3.4 x10^3/uL (1.8-7.7) Lymphocytes # (Auto) 1.7 x10^3/uL (1.0-4.8) 2.3 x10^3/uL (1.0-4.8) Monocytes # (Auto) 0.4 x10^3/uL (0.0-1.1) 0.3 x10^3/uL (0.0-1.1) Eosinophils # (Auto) 0.2 x10^3/uL (0.0-0.7) 0.3 x10^3/uL (0.0-0.7) Basophils # (Auto) 0.1 x10^3/uL (0.0-0.2) 0.1 x10^3/uL (0.0-0.2) Platelet Estimate Adequate (ADEQUATE) Hypochromasia Present Microcytosis Present Sodium Level 139 mmol/L (136-145) 140 mmol/L (136-145) Potassium Level 3.8 mmol/L (3.5-5.1) 3.6 mmol/L (3.5-5.1) Chloride Level 101 mmol/L (98-107) 104 mmol/L (98-107) Carbon Dioxide Level 28 mmol/L (21-32) 28 mmol/L (21-32) Anion Gap 10 (6-14) 8 (6-14) Blood Urea Nitrogen 11 mg/dL (7-20) 11 mg/dL (7-20) Creatinine 1.0 mg/dL (0.6-1.0) 0.9 mg/dL (0.6-1.0) Estimated GFR (Cockcroft-Gault) 58.2 65.8 BUN/Creatinine Ratio 11 (6-20) Glucose Level 103 mg/dL (70-99) 99 mg/dL (70-99) Calcium Level 9.0 mg/dL (8.5-10.1) 8.2 mg/dL (8.5-10.1) Total Bilirubin 0.2 mg/dL (0.2-1.0) Aspartate Amino Transf (AST/SGOT) 25 U/L (15-37) Alanine Aminotransferase (ALT/SGPT) 37 U/L (14-59) Alkaline Phosphatase 71 U/L (46-116) Creatine Kinase 440 U/L (26-192) Total Protein 7.8 g/dL (6.4-8.2) Albumin 4.1 g/dL (3.4-5.0) Albumin/Globulin Ratio 1.1 (1.0-1.7) Thyroid Stimulating Hormone (TSH) 124.222 uIU/mL (0.358-3.74) Ferritin 5 ng/mL (8-252) Vitamin B12 Level 273 pg/mL (247-911) 25-Hydroxy Vitamin D Total 12.3 ng/mL (30-100) Free Thyroxine 0.20 ng/dL (0.76-1.46) Free Triiodothyronine (T3) pg/mL < 0.50 pg/mL (2.18-3.98) Total Triiodothyronine <20 ng/dL (71-180) HIV (1&2) Antibody Screen Nonreactive (Nonreactive) Phosphorus Level 4.0 mg/dL (2.6-4.7) Magnesium Level 2.4 mg/dL (1.8-2.4) C-Reactive Protein, Quantitative 2.1 mg/L (0-3.3) Laboratory Tests Test 04/02/20 08:20 04/02/20 15:15 04/03/20 04:55 White Blood Count 7.1 x10^3/uL (4.0-11.0) 6.4 x10^3/uL (4.0-11.0) Red Blood Count 5.51 x10^6/uL (3.50-5.40) 5.03 x10^6/uL (3.50-5.40) Hemoglobin 12.8 g/dL (12.0-15.5) 11.5 g/dL (12.0-15.5) Hematocrit 39.0 % (36.0-47.0) 35.6 % (36.0-47.0) Mean Corpuscular Volume 71 fL (79-100) 71 fL (79-100) Mean Corpuscular Hemoglobin 23 pg (25-35) 23 pg (25-35) Mean Corpuscular Hemoglobin Concent 33 g/dL (31-37) 32 g/dL (31-37) Red Cell Distribution Width 18.9 % (11.5-14.5) 19.1 % (11.5-14.5) Platelet Count 293 x10^3/uL (140-400) 254 x10^3/uL (140-400) Neutrophils (%) (Auto) 66 % (31-73) 53 % (31-73) Lymphocytes (%) (Auto) 24 % (24-48) 36 % (24-48) Monocytes (%) (Auto) 5 % (0-9) 5 % (0-9) Eosinophils (%) (Auto) 4 % (0-3) 4 % (0-3) Basophils (%) (Auto) 1 % (0-3) 1 % (0-3) Neutrophils # (Auto) 4.7 x10^3/uL (1.8-7.7) 3.4 x10^3/uL (1.8-7.7) Lymphocytes # (Auto) 1.7 x10^3/uL (1.0-4.8) 2.3 x10^3/uL (1.0-4.8) Monocytes # (Auto) 0.4 x10^3/uL (0.0-1.1) 0.3 x10^3/uL (0.0-1.1) Eosinophils # (Auto) 0.2 x10^3/uL (0.0-0.7) 0.3 x10^3/uL (0.0-0.7) Basophils # (Auto) 0.1 x10^3/uL (0.0-0.2) 0.1 x10^3/uL (0.0-0.2) Platelet Estimate Adequate (ADEQUATE) Hypochromasia Present Microcytosis Present Sodium Level 139 mmol/L (136-145) 140 mmol/L (136-145) Potassium Level 3.8 mmol/L (3.5-5.1) 3.6 mmol/L (3.5-5.1) Chloride Level 101 mmol/L (98-107) 104 mmol/L (98-107) Carbon Dioxide Level 28 mmol/L (21-32) 28 mmol/L (21-32) Anion Gap 10 (6-14) 8 (6-14) Blood Urea Nitrogen 11 mg/dL (7-20) 11 mg/dL (7-20) Creatinine 1.0 mg/dL (0.6-1.0) 0.9 mg/dL (0.6-1.0) Estimated GFR (Cockcroft-Gault) 58.2 65.8 BUN/Creatinine Ratio 11 (6-20) Glucose Level 103 mg/dL (70-99) 99 mg/dL (70-99) Calcium Level 9.0 mg/dL (8.5-10.1) 8.2 mg/dL (8.5-10.1) Total Bilirubin 0.2 mg/dL (0.2-1.0) Aspartate Amino Transf (AST/SGOT) 25 U/L (15-37) Alanine Aminotransferase (ALT/SGPT) 37 U/L (14-59) Alkaline Phosphatase 71 U/L (46-116) Creatine Kinase 440 U/L (26-192) Total Protein 7.8 g/dL (6.4-8.2) Albumin 4.1 g/dL (3.4-5.0) Albumin/Globulin Ratio 1.1 (1.0-1.7) Thyroid Stimulating Hormone (TSH) 124.222 uIU/mL (0.358-3.74) Ferritin 5 ng/mL (8-252) Vitamin B12 Level 273 pg/mL (247-911) 25-Hydroxy Vitamin D Total 12.3 ng/mL (30-100) Free Thyroxine 0.20 ng/dL (0.76-1.46) Free Triiodothyronine (T3) pg/mL < 0.50 pg/mL (2.18-3.98) Total Triiodothyronine <20 ng/dL (71-180) HIV (1&2) Antibody Screen Nonreactive (Nonreactive) Phosphorus Level 4.0 mg/dL (2.6-4.7) Magnesium Level 2.4 mg/dL (1.8-2.4) C-Reactive Protein, Quantitative 2.1 mg/L (0-3.3) Medications Current Medications Ondansetron HCl (Zofran) 4 mg PRN Q8HRS PRN IV NAUSEA/VOMITING; Start 04/02/20 at 10:30; Stop 04/03/20 at 10:29 Sennosides (Senna) 17.2 mg PRN BID PRN PO CONSTIPATION; Start 04/02/20 at 14:15 Docusate Sodium (Colace) 100 mg PRN DAILY PRN PO HARD STOOLS; Start 04/02/20 at 14:15 Thiamine HCl 100 mg/Dextrose 51 ml @ 102 mls/hr DAILY IV Last administered on 04/02/20at 18:07; Start 04/02/20 at 15:00 Ondansetron HCl (Zofran) 4 mg PRN Q6HRS PRN IVP NAUSEA/VOMITING; Start 04/02/20 at 14:15 Potassium Chloride (Klor-Con) 40 meq 1X PRN PO PER PROTOCOL; Start 04/02/20 at 14:15; Status UNV Magnesium Oxide (Magnesium Oxide) 400 mg BID PO ; Start 04/02/20 at 21:00; Stop 04/04/20 at 09:01; Status UNV Potassium Chloride/Water 100 ml @ 100 mls/hr Q1H IV ; Start 04/02/20 at 14:15; Stop 04/02/20 at 18:14; Status UNV Magnesium Sulfate 50 ml @ 25 mls/hr Q24H IV ; Start 04/02/20 at 14:15; Stop 04/04/20 at 16:14; Status UNV Potassium Chloride/Water 100 ml @ 100 mls/hr Q1H PRN IV low k; Start 04/02/20 at 14:15; Status UNV Dextrose (Dextrose 50%-Water Syringe) 12.5 gm PRN Q15MIN PRN IV SEE COMMENTS; Start 04/02/20 at 14:15 Acetaminophen (Tylenol) 650 mg PRN Q4HRS PRN PO TEMP OVER 100.4F OR MILD PAIN; Start 04/02/20 at 14:15 Docusate Sodium (Colace) 100 mg PRN BID PRN PO HARD STOOLS; Start 04/02/20 at 14:15 Levothyroxine Sodium (Synthroid) 175 mcg DAILY06 PO Last administered on 04/03/20at 06:29; Start 04/03/20 at 06:00 Info (Non-Icu Electrolyte Protocol) 1 ea CONT PRN PRN MC SEE COMMENTS; Start 04/02/20 at 15:00 Vitals/I & O Vital Sign - Last 24 Hours 04/02/20 04/02/20 04/02/20 04/02/20 08:13 08:30 09:00 09:30 Temp 98.7 98.7 Pulse 88 74 74 66 Resp 20 B/P (MAP) 181/107 (131) Pulse Ox 94 98 95 99 O2 Delivery Room Air 04/02/20 04/02/20 04/02/20 04/02/20 10:00 10:30 11:00 11:30 Pulse 64 68 72 70 Pulse Ox 99 100 100 100 04/02/20 04/02/20 04/02/20 04/02/20 12:00 13:00 13:39 14:09 Pulse 66 68 72 76 Pulse Ox 100 99 98 98 04/02/20 04/02/20 04/02/20 04/02/20 14:39 15:00 19:00 20:00 Temp 97.6 97.9 97.6 97.9 Pulse 76 73 80 Resp 18 18 B/P (MAP) 150/94 (112) 131/83 (99) Pulse Ox 98 99 98 O2 Delivery Room Air Room Air 04/02/20 04/03/20 23:00 03:00 Temp 97.8 97.7 97.8 97.7 Pulse 72 73 Resp 16 18 B/P (MAP) 102/59 (73) 99/60 (73) Pulse Ox 97 96 O2 Delivery Room Air Room Air Intake and Output 04/02/20 04/02/20 04/03/20 15:00 23:00 07:00 Intake Total 151 ml 300 ml Balance 151 ml 300 ml Justicifation of Admission Dx: Justifications for Admission: Justification of Admission Dx: Yes VARGHESE WATKINS MD Apr 03, 2020 07:23
--- NOTE | 2020-04-03 07:49 | EKG ---
[facility] [address] [place] [address] Test Date: 2020-04-02 Test Time: 08:20:20 Pat Name: ELIO MOLINA Department: Room: Gender: F [employer] Clerk: : 1965 Requested By: ANASTACIA CHEATHAM Order Number: [id number] Reading MD: Measurements Intervals Vega Rate: 78 P: 32 NC: 182 QRS: 39 QRSD: 68 T: 4 QT: 362 QTc: 416 Interpretive Statements SINUS RHYTHM LOW LIMB LEAD VOLTAGE T ABNORMALITY IN ANTEROLATERAL LEADS ABNORMAL ECG RI6.02 No previous ECG available for comparison
[2020-04-03] MEDS: THIAMINE INJ 100 MG in IV DEXTROSE 5% 50 ML IV SCH (10:08)
[2020-04-03] MEDS: ACETAMINOPHEN 325 MG TABLET. PO PRN (10:31)
[2020-04-03 11:00] VITALS: BP 135/85
[2020-04-03] MEDS ORDERED: diazePAM 5 MG TABLET PO PRN (14:00)
--- NOTE | 2020-04-03 14:28 | PDOC ---
PROGRESS NOTES Date of Service DATE: 04/03/20 TIME: 14:25 Assessment Problems Medical Problems: (1) E03.9 Status: Acute (2) Left leg weakness Status: Acute Right hand weakness and clumsiness, left foot weakness, hard to reconcile this o n the basis of any organic neurological issue. Multiple sclerosis needs to be excluded. Multiple entrapment neuropathies are possible but unlikely to occur simultaneously and wax and wane for a few days at a time over several years. I find no evidence of cervical or lumbar radiculopathy, myelopathy, peripheral neuropathy. The distribution of weakness in the left foot is unusual. Note normal head CT. However, she is profoundly hypothyroid and low on B12, which can mimic all sorts of neurological issues. History of seizures, resolved. Plan Await MRI of the brain Further work-up recommendations after that. Await additional laboratory studies Rehabilitation modalities Treatment of hypothyroidism B12 replacement Subjective Feels better Objective Vital Signs Date Time Temp Pulse Resp B/P (MAP) Pulse Ox O2 Delivery O2 Flow Rate FiO2 04/03/20 11:00 97.7 72 18 135/85 (102) 94 Room Air 97.7 Intake and Output 04/03/20 07:00 Intake Total 451 ml Balance 451 ml Intake Oral 400 ml IV Total 51 ml # Voids 2 PHYSICAL EXAM Alert. Oriented to time, place and person. PERRL. EOMI. CN: no focal findings. Muscle tone: normal. Muscle strength: 3/5 left foot weakness both dorsi and plantar flexion, but no drift of the left leg. In the right arm there is giveaway weakness of the right hand, no pronator drift. Strength is improved from yesterday. Strength is o therwise 5/5 DTR: 2+ Plantar reflex: Flexor Gait: not examined in bed. Sensory exam: Patchy loss, distal left lower extremity, circumferential with a sharp line of demarcation. No cerebellar signs elicited. Review of Relevant I have reviewed the following items cuong (where applicable) has been applied. Labs Laboratory Tests Test 04/02/20 08:20 04/02/20 15:15 04/03/20 04:55 White Blood Count 7.1 x10^3/uL (4.0-11.0) 6.4 x10^3/uL (4.0-11.0) Red Blood Count 5.51 x10^6/uL (3.50-5.40) 5.03 x10^6/uL (3.50-5.40) Hemoglobin 12.8 g/dL (12.0-15.5) 11.5 g/dL (12.0-15.5) Hematocrit 39.0 % (36.0-47.0) 35.6 % (36.0-47.0) Mean Corpuscular Volume 71 fL (79-100) 71 fL (79-100) Mean Corpuscular Hemoglobin 23 pg (25-35) 23 pg (25-35) Mean Corpuscular Hemoglobin Concent 33 g/dL (31-37) 32 g/dL (31-37) Red Cell Distribution Width 18.9 % (11.5-14.5) 19.1 % (11.5-14.5) Platelet Count 293 x10^3/uL (140-400) 254 x10^3/uL (140-400) Neutrophils (%) (Auto) 66 % (31-73) 53 % (31-73) Lymphocytes (%) (Auto) 24 % (24-48) 36 % (24-48) Monocytes (%) (Auto) 5 % (0-9) 5 % (0-9) Eosinophils (%) (Auto) 4 % (0-3) 4 % (0-3) Basophils (%) (Auto) 1 % (0-3) 1 % (0-3) Neutrophils # (Auto) 4.7 x10^3/uL (1.8-7.7) 3.4 x10^3/uL (1.8-7.7) Lymphocytes # (Auto) 1.7 x10^3/uL (1.0-4.8) 2.3 x10^3/uL (1.0-4.8) Monocytes # (Auto) 0.4 x10^3/uL (0.0-1.1) 0.3 x10^3/uL (0.0-1.1) Eosinophils # (Auto) 0.2 x10^3/uL (0.0-0.7) 0.3 x10^3/uL (0.0-0.7) Basophils # (Auto) 0.1 x10^3/uL (0.0-0.2) 0.1 x10^3/uL (0.0-0.2) Platelet Estimate Adequate (ADEQUATE) Hypochromasia Present Microcytosis Present Sodium Level 139 mmol/L (136-145) 140 mmol/L (136-145) Potassium Level 3.8 mmol/L (3.5-5.1) 3.6 mmol/L (3.5-5.1) Chloride Level 101 mmol/L (98-107) 104 mmol/L (98-107) Carbon Dioxide Level 28 mmol/L (21-32) 28 mmol/L (21-32) Anion Gap 10 (6-14) 8 (6-14) Blood Urea Nitrogen 11 mg/dL (7-20) 11 mg/dL (7-20) Creatinine 1.0 mg/dL (0.6-1.0) 0.9 mg/dL (0.6-1.0) Estimated GFR (Cockcroft-Gault) 58.2 65.8 BUN/Creatinine Ratio 11 (6-20) Glucose Level 103 mg/dL (70-99) 99 mg/dL (70-99) Calcium Level 9.0 mg/dL (8.5-10.1) 8.2 mg/dL (8.5-10.1) Total Bilirubin 0.2 mg/dL (0.2-1.0) Aspartate Amino Transf (AST/SGOT) 25 U/L (15-37) Alanine Aminotransferase (ALT/SGPT) 37 U/L (14-59) Alkaline Phosphatase 71 U/L (46-116) Creatine Kinase 440 U/L (26-192) Total Protein 7.8 g/dL (6.4-8.2) Albumin 4.1 g/dL (3.4-5.0) Albumin/Globulin Ratio 1.1 (1.0-1.7) Thyroid Stimulating Hormone (TSH) 124.222 uIU/mL (0.358-3.74) Ferritin 5 ng/mL (8-252) Vitamin B12 Level 273 pg/mL (247-911) 231 pg/mL (247-911) 25-Hydroxy Vitamin D Total 12.3 ng/mL (30-100) Free Thyroxine 0.20 ng/dL (0.76-1.46) Free Triiodothyronine (T3) pg/mL < 0.50 pg/mL (2.18-3.98) Total Triiodothyronine <20 ng/dL (71-180) HIV (1&2) Antibody Screen Nonreactive (Nonreactive) Phosphorus Level 4.0 mg/dL (2.6-4.7) Magnesium Level 2.4 mg/dL (1.8-2.4) Iron Level 45 ug/dL (50-170) Total Iron Binding Capacity 459 ug/dL (250-450) Iron Saturation 10 % (15-34) C-Reactive Protein, Quantitative 2.1 mg/L (0-3.3) Cortisol AM Sample 11.0 ug/dL (4.3-22.4) Laboratory Tests Test 04/02/20 15:15 04/03/20 04:55 Ferritin 5 ng/mL (8-252) Vitamin B12 Level 273 pg/mL (247-911) 231 pg/mL (247-911) 25-Hydroxy Vitamin D Total 12.3 ng/mL (30-100) Free Thyroxine 0.20 ng/dL (0.76-1.46) Free Triiodothyronine (T3) pg/mL < 0.50 pg/mL (2.18-3.98) Total Triiodothyronine <20 ng/dL (71-180) HIV (1&2) Antibody Screen Nonreactive (Nonreactive) White Blood Count 6.4 x10^3/uL (4.0-11.0) Red Blood Count 5.03 x10^6/uL (3.50-5.40) Hemoglobin 11.5 g/dL (12.0-15.5) Hematocrit 35.6 % (36.0-47.0) Mean Corpuscular Volume 71 fL (79-100) Mean Corpuscular Hemoglobin 23 pg (25-35) Mean Corpuscular Hemoglobin Concent 32 g/dL (31-37) Red Cell Distribution Width 19.1 % (11.5-14.5) Platelet Count 254 x10^3/uL (140-400) Neutrophils (%) (Auto) 53 % (31-73) Lymphocytes (%) (Auto) 36 % (24-48) Monocytes (%) (Auto) 5 % (0-9) Eosinophils (%) (Auto) 4 % (0-3) Basophils (%) (Auto) 1 % (0-3) Neutrophils # (Auto) 3.4 x10^3/uL (1.8-7.7) Lymphocytes # (Auto) 2.3 x10^3/uL (1.0-4.8) Monocytes # (Auto) 0.3 x10^3/uL (0.0-1.1) Eosinophils # (Auto) 0.3 x10^3/uL (0.0-0.7) Basophils # (Auto) 0.1 x10^3/uL (0.0-0.2) Sodium Level 140 mmol/L (136-145) Potassium Level 3.6 mmol/L (3.5-5.1) Chloride Level 104 mmol/L (98-107) Carbon Dioxide Level 28 mmol/L (21-32) Anion Gap 8 (6-14) Blood Urea Nitrogen 11 mg/dL (7-20) Creatinine 0.9 mg/dL (0.6-1.0) Estimated GFR (Cockcroft-Gault) 65.8 Glucose Level 99 mg/dL (70-99) Calcium Level 8.2 mg/dL (8.5-10.1) Phosphorus Level 4.0 mg/dL (2.6-4.7) Magnesium Level 2.4 mg/dL (1.8-2.4) Iron Level 45 ug/dL (50-170) Total Iron Binding Capacity 459 ug/dL (250-450) Iron Saturation 10 % (15-34) C-Reactive Protein, Quantitative 2.1 mg/L (0-3.3) Cortisol AM Sample 11.0 ug/dL (4.3-22.4) Medications Current Medications Ondansetron HCl (Zofran) 4 mg PRN Q8HRS PRN IV NAUSEA/VOMITING; Start 04/02/20 at 10:30; Stop 04/03/20 at 10:29; Status DC Sennosides (Senna) 17.2 mg PRN BID PRN PO CONSTIPATION; Start 04/02/20 at 14:15 Docusate Sodium (Colace) 100 mg PRN DAILY PRN PO HARD STOOLS; Start 04/02/20 at 14:15; Stop 04/03/20 at 09:11; Status DC Thiamine HCl 100 mg/Dextrose 51 ml @ 102 mls/hr DAILY IV Last administered on 04/03/20at 10:08; Start 04/02/20 at 15:00 Ondansetron HCl (Zofran) 4 mg PRN Q6HRS PRN IVP NAUSEA/VOMITING; Start 04/02/20 at 14:15 Potassium Chloride (Klor-Con) 40 meq 1X PRN PO PER PROTOCOL; Start 04/02/20 at 14:15; Status UNV Magnesium Oxide (Magnesium Oxide) 400 mg BID PO ; Start 04/02/20 at 21:00; Stop 04/04/20 at 09:01; Status UNV Potassium Chloride/Water 100 ml @ 100 mls/hr Q1H IV ; Start 04/02/20 at 14:15; Stop 04/02/20 at 18:14; Status UNV Magnesium Sulfate 50 ml @ 25 mls/hr Q24H IV ; Start 04/02/20 at 14:15; Stop 04/04/20 at 16:14; Status UNV Potassium Chloride/Water 100 ml @ 100 mls/hr Q1H PRN IV low k; Start 04/02/20 at 14:15; Status UNV Dextrose (Dextrose 50%-Water Syringe) 12.5 gm PRN Q15MIN PRN IV SEE COMMENTS; Start 04/02/20 at 14:15 Acetaminophen (Tylenol) 650 mg PRN Q4HRS PRN PO TEMP OVER 100.4F OR MILD PAIN Last administered on 04/03/20at 10:31; Start 04/02/20 at 14:15 Docusate Sodium (Colace) 100 mg PRN BID PRN PO HARD STOOLS; Start 04/02/20 at 14:15 Levothyroxine Sodium (Synthroid) 175 mcg DAILY06 PO Last administered on 04/03/20at 06:29; Start 04/03/20 at 06:00 Info (Non-Icu Electrolyte Protocol) 1 ea CONT PRN PRN MC SEE COMMENTS; Start 04/02/20 at 15:00 Diazepam (Valium) 10 mg 1X PRN PRN PO ANXIETY; Start 04/03/20 at 14:00 Cyanocobalamin (Vitamin B-12) 1,000 mcg DAILY IM ; Start 04/03/20 at 14:00; Stop 04/04/20 at 09:01 Vitals/I & O Vital Sign - Last 24 Hours 04/02/20 04/02/20 04/02/2004/02/20 14:39 15:00 19:00 20:00 Temp 97.6 97.9 97.6 97.9 Pulse 76 73 80 Resp 18 18 B/P (MAP) 150/94 (112) 131/83 (99) Pulse Ox 98 99 98 O2 Delivery Room Air Room Air 04/02/20 04/03/20 04/03/20 04/03/20 23:00 03:00 07:00 08:00 Temp 97.8 97.7 97.5 97.8 97.7 97.5 Pulse 72 73 72 Resp 16 18 18 B/P (MAP) 102/59 (73) 99/60 (73) 120/57 (78) Pulse Ox 97 96 94 O2 Delivery Room Air Room Air Room Air Room Air 04/03/20 11:00 Temp 97.7 97.7 Pulse 72 Resp 18 B/P (MAP) 135/85 (102) Pulse Ox 94 O2 Delivery Room Air Intake and Output 04/02/20 04/02/20 04/03/20 15:00 23:00 07:00 Intake Total 151 ml 300 ml Balance 151 ml 300 ml Justicifation of Admission Dx: Justifications for Admission: Justification of Admission Dx: Yes LUCY JACKSON MD Apr 03, 2020 14:28
--- NOTE | 2020-04-03 14:33 | PDOC2 ---
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 Significantly elevated TSH and mild anemia noted - both iron and B12 low. Says has been out of thyroid medication for 3-4 days. Neuro following - brain MRI ordered. H/o GERD controlled w/ Pepcid. Occasional dysphagia w/ pills and solids when the rest of her muscles feel weak. No n/v, abd pain, bleeding, diarrhea, or constipation. Has gained weight. EGD and colonoscopy (says through [facility] w/ a doctor from [place]) last year for anemia. Sounds like reflux noted on EGD and colonoscopy was normal. After EGD she was started on an acid-film flat inspector that caused diarrhea so she switched to Pepcid. Took iron for awhile but PCP stopped because Hgb and iron levels were normal. No GB, liver, pancreas, or PUD history. PMH: PMH: seizure, anemia tonsillectomy, thyroidectomy, partial hysterectomy FH: Family History: Cancer (uterine), CVA, DM, Hypertension ROS: GEN: Denies fevers, chills, sweats HEENT: Denies blurred vision, sore throat CV: Denies chest pain RESP: Denies shortness of air, cough GI: Per HPI : Denies hematuria, dysuria ENDO: +weight gain NEURO: Denies confusion, dizziness MSK: +weakness SKIN: Denies jaundice, pruritus Vitals: Vitals: Vital Signs Date Time Temp Pulse Resp B/P (MAP) Pulse Ox O2 Delivery O2 Flow Rate FiO2 04/03/20 11:00 97.7 72 18 135/85 (102) 94 Room Air 97.7 Labs: Labs: Laboratory Tests Test 04/02/20 15:15 04/03/20 04:55 Ferritin 5 ng/mL (8-252) Vitamin B12 Level 273 pg/mL (247-911) 231 pg/mL (247-911) 25-Hydroxy Vitamin D Total 12.3 ng/mL (30-100) Free Thyroxine 0.20 ng/dL (0.76-1.46) Free Triiodothyronine (T3) pg/mL < 0.50 pg/mL (2.18-3.98) Total Triiodothyronine <20 ng/dL (71-180) HIV (1&2) Antibody Screen Nonreactive (Nonreactive) White Blood Count 6.4 x10^3/uL (4.0-11.0) Red Blood Count 5.03 x10^6/uL (3.50-5.40) Hemoglobin 11.5 g/dL (12.0-15.5) Hematocrit 35.6 % (36.0-47.0) Mean Corpuscular Volume 71 fL (79-100) Mean Corpuscular Hemoglobin 23 pg (25-35) Mean Corpuscular Hemoglobin Concent 32 g/dL (31-37) Red Cell Distribution Width 19.1 % (11.5-14.5) Platelet Count 254 x10^3/uL (140-400) Neutrophils (%) (Auto) 53 % (31-73) Lymphocytes (%) (Auto) 36 % (24-48) Monocytes (%) (Auto) 5 % (0-9) Eosinophils (%) (Auto) 4 % (0-3) Basophils (%) (Auto) 1 % (0-3) Neutrophils # (Auto) 3.4 x10^3/uL (1.8-7.7) Lymphocytes # (Auto) 2.3 x10^3/uL (1.0-4.8) Monocytes # (Auto) 0.3 x10^3/uL (0.0-1.1) Eosinophils # (Auto) 0.3 x10^3/uL (0.0-0.7) Basophils # (Auto) 0.1 x10^3/uL (0.0-0.2) Sodium Level 140 mmol/L (136-145) Potassium Level 3.6 mmol/L (3.5-5.1) Chloride Level 104 mmol/L (98-107) Carbon Dioxide Level 28 mmol/L (21-32) Anion Gap 8 (6-14) Blood Urea Nitrogen 11 mg/dL (7-20) Creatinine 0.9 mg/dL (0.6-1.0) Estimated GFR (Cockcroft-Gault) 65.8 Glucose Level 99 mg/dL (70-99) Calcium Level 8.2 mg/dL (8.5-10.1) Phosphorus Level 4.0 mg/dL (2.6-4.7) Magnesium Level 2.4 mg/dL (1.8-2.4) Iron Level 45 ug/dL (50-170) Total Iron Binding Capacity 459 ug/dL (250-450) Iron Saturation 10 % (15-34) C-Reactive Protein, Quantitative 2.1 mg/L (0-3.3) Cortisol AM Sample 11.0 ug/dL (4.3-22.4) Allergies: Coded Allergies: metoclopramide (Verified Allergy, Intermediate, 04/02/20) Medications: Current Medications Medications (Trade) Dose Ordered Sig/Jas Route PRN Reason Start Time Stop Time Status Last Admin Dose Admin Thiamine HCl 100 mg/Dextrose 51 ml @ 102 mls/hr DAILY IV 04/02/20 15:00 04/03/20 10:08 Levothyroxine Sodium (Synthroid) 175 mcg DAILY06 PO 04/03/20 06:00 04/03/20 06:29 Imaging: Imaging: Head CT IMPRESSION: No acute intracranial findings. CXR IMPRESSION: No radiographic evidence of an acute cardiopulmonary process. PE: GEN: NAD HEENT: Atraumatic, PERRL LUNGS: CTAB HEART: RRR ABD: NABS, S/ND/NT EXTREMITY: No edema SKIN: No rashes, no jaundice NEURO/PSYCH: A & O 3 A/P: A/P: LLE and right hand weakness Hypothyroidism Mild SHOSHANA/B12 deficiency GERD CRC screen - UTD -- Recent 'scopes for anemia reportedly unrevealing. Continue neuro workup, treat hypothyroidism. Continue H2 isma for GERD. MARIA LUZ GUTIÉRREZ Apr 03, 2020 14:33
[2020-04-03 15:00] VITALS: BP 116/71
--- NOTE | 2020-04-03 15:51 | NUR ---
Administered 10mg Valium po to patient in MRI.
--- NOTE | 2020-04-03 16:10 | NUR ---
SW following. Spoke with RN and reviewed chart. Pt from home, room air, regular diet. Pt on IV Dextrose. PT/OT recommendation is for acute rehab. JEREMIAS phoned and faxed referral to [facility] acute rehab. Pt to have MRI today. Patient Choice of Vendor form completed. SW to follow.
--- NOTE | 2020-04-03 16:54 | RAD ---
EXAM: Brain MRI without contrast. HISTORY: Left leg weakness. Right hand clumsiness. TECHNIQUE: Multiplanar, multisequence magnetic resonance imaging of the brain was performed without contrast. COMPARISON: CT dated 04/02/2020. FINDINGS: There is no restricted diffusion to suggest acute or subacute infarction. There is no susceptibility effect to suggest hemorrhage. There is no mass effect or midline shift. There is no hydrocephalus. There are scattered focal areas of T2 such FLAIR hyperintensity within the cerebral white matter, the largest of which are seen within the right posterior cerebral distribution. The orbits are unremarkable. The paranasal sinuses are clear. There is a small amount of right mastoid fluid. There are normal flow voids within the cerebral vessels. No calvarial lesion is seen. IMPRESSION: 1. No acute intracranial finding. 2. Multiple scattered areas of signal change throughout the cerebral white matter. The differential in a patient of this age includes changes due to chronic small vessel disease as well as demyelinating disease. Electronically signed by: Luisa Interiano MD (04/03/2020 4:51 PM) [id number]
[2020-04-03 19:00] VITALS: BP 121/72
[2020-04-03] MEDS: CYANOCOBALAMIN (VITAMIN B-12) 1,000 MCG/ML VIAL IM SCH (19:13)
[2020-04-03] MEDS: FAMOTIDINE 20 MG TABLET. PO SCH (21:27)
[2020-04-03 23:00] VITALS: BP 101/58
[2020-04-04 03:00] VITALS: BP 107/67
[2020-04-04 07:30] VITALS: BP 125/71
[2020-04-04 07:40] LABS: BASO # 0.1 x10^3/uL (0.0-0.2); BASO % 1 % (0-3); EOS # 0.2 x10^3/uL (0.0-0.7); EOS % 4 % (0-3); HEMATOCRIT 35.7 % (36.0-47.0); HEMOGLOBIN 11.6 g/dL (12.0-15.5); LYMPH # 1.9 x10^3/uL (1.0-4.8); LYMPH % 35 % (24-48); MEAN CORPUSCULAR HEMOGLOBIN 23 pg (25-35); MEAN CORPUSCULAR HGB CONC 32 g/dL (31-37); MEAN CORPUSCULAR VOLUME 71 fL (79-100); MONO # 0.3 x10^3/uL (0.0-1.1); MONO % 6 % (0-9); NEUT % 55 % (31-73); PLATELET COUNT 258 x10^3/uL (140-400); RED CELL DISTRIBUTION WIDTH 19.1 % (11.5-14.5); WHITE BLOOD COUNT 5.5 x10^3/uL (4.0-11.0)
[2020-04-04] MEDS: LEVOTHYROXINE 175 MCG TABLET PO SCH (08:03)
[2020-04-04 08:18] LABS: ALBUMIN 3.4 g/dL (3.4-5.0); CALCIUM 8.2 mg/dL (8.5-10.1); CREATININE 0.9 mg/dL (0.6-1.0); GFR 65.8; POTASSIUM 3.7 mmol/L (3.5-5.1); TOTAL BILIRUBIN 0.3 mg/dL (0.2-1.0); TOTAL PROTEIN 6.7 g/dL (6.4-8.2)
[2020-04-04 08:36] LABS: BILIRUBIN,URINE SMALL (NEG); CLARITY,URINE CLEAR; COLOR,URINE YELLOW; NITRITE,URINE NEGATIVE (NEG); PROTEIN,URINE NEGATIVE (NEG-TRACE)
[2020-04-04 08:40] LABS: SQUAMOUS EPITHELIAL CELL,UR MOD /LPF
[2020-04-04 08:41] LABS: BACTERIA,URINE MANY /HPF (0-FEW); WBC,URINE 20-40 /HPF (0-4)
[2020-04-04 08:42] LABS: BARBITURATES NEG (NEG); BENZODIAZEPINES POS (NEG); CANNABINOIDS NEG (NEG); COCAINE NEG (NEG); METHADONE NEG (NEG); OPIATES NEG (NEG); PHENCYCLIDINE NEG (NEG)
[2020-04-04 08:44] LABS: AMPHETAMINE/METHAMPHETAMINE NEG (NEG)
--- NOTE | 2020-04-04 08:45 | PDOC ---
PROGRESS NOTES Date of Service: DATE: 04/04/20 TIME: 08:44 Chief Complaint Chief Complaint Images: Images Head CT IMPRESSION: No acute intracranial findings. impression Acute left lower extremity and right hand weakness concerning for multiple sclerosis versus hypothyroid myopathy elevated TSH, extreme , concerning for uncontrolled hypothyroidism versus malabsorption Elevated CK levels possible multiple sclerosis myxedema MICROCYTIC ANEMIA low b12 plan Admit to medicine for further management Neurology consult note T3 and T4 levels Pending cortisol levels Pending vitamin D levels Start levothyroxine at 175 mcg daily Lovenox for DVT prophylaxis Regular diet Full code Discussed with RN and SW MRI HEAD IRON PANEL ESR SU GUIAC STOOLS GI CONSULT ALDOLASE mri head with contrast 04/04 replace b12 Disposition inpatient care, pending neurology consult Surrogate decision maker is the NEEDS DPOA, POA REG ADMIT 36 min pt exam, chart review, > 50% of time spent with exam, chart review, pt care coordination Justifications for Admission Justifications for Admission Other Justification Left lower leg weakness and severe hypothyroidism History of Present Illness History of Present Illness Chief Complaint: Chief Complain: Worsening weakness of her left lower extremity History of Present Illness: HPI: Patient is a 54-year-old female with past medical history of hypothyroidism, goiter status post thyroidectomy, history of unprovoked seizures, who presents to the ED with a 3-day history of worsening weakness of her left lower extremity. Patient states that she has had on and off weakness of her left lower extremity that woke her and get worse but will spontaneously improve. This has been going on for the past 5 to 6 years however it has been becoming more frequent. Her last episode was in May 2019. Patient also experiences right hand weakness. She is unable to hold a pen. Patient does also endorse some unsteadiness during walking and feels like she is about to fall and bumped into objects around her house.Patient denies any numbness or bowel or bladder incontinence patient denies any back pain or fevers. Patient denies any procedures on her back. Patient denies any visual disturbance or diplopia. Denies risky sexual activity. She does endorse being and having 2 children. She is a [id number] mom. Patient states that she does have compliance with her thyroid medication and she does take this in the morning before her meals. She does not recall if she is ever had iron deficiency anemia. There are no family history of celiac's disease or multiple sclerosis in the family. Patient was seen in the ED and she was having left lower leg weakness. Patient is able to flex her hip however she is unable to dorsi or plantarflex well with her left foot. 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 Patient's gait is unsteady. Romberg sign is negative Past Medical/Surgical History: PMH/PSH: Past Medical History: Seizure, hypothyroidism, Goiter Past Surgical History: thyroidectomy Allergies: Allergies: Coded Allergies: metoclopramide (Verified Allergy, Intermediate, 04/02/20) Family History: Family History: obesity Social History: Social History: Denies alcohol, drug, tobacco abuse. Vitals Vitals Vital Signs Date Time Temp Pulse Resp B/P (MAP) Pulse Ox O2 Delivery O2 Flow Rate FiO2 04/04/20 03:00 98.0 65 18 107/67 (80) 95 Room Air 98.0 Physical Exam Physical Exam GEN: No apparent distress. Alert and oriented HEENT: Normal cephalic, atraumatic, external auditory canals are patent EYES: Extraocular muscles are intact, pupil are equally round and reactive to light and accommodation MUSCULOSKELETAL: Well developed , well nourished, good range of motion ENDOCRINE: No thyromegaly was palpated LYMPHATICS: No cervical chain or axillary nodes were noted HEMATOPOIETIC: No bruising NECK: Supple, no JVD, no thyromegaly was noted LUNGS: Clear to auscultation in all lung de jesus without rhonchi or wheezing HEART: RRR, S!, S2 present. Peripheral pulses intact, no obvious murmurs noted ABDOMEN: Soft, nontender. Positive bowel sounds, no organomegaly, normal bowel sounds EXTREMITIES: NO ,clubbing, cyanosis, MILD edema. Pedal pulses intact. Negative Homans sign NEUROLOGIC: Normal speech and tone. A&O x 3, Patient is able to flex her hip however she is unable to dorsi or plantarflex well with her left foot. 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 Patient's gait is unsteady. Romberg sign is negative PSYCHIATRIC: Normal affect, normal mood. Stable SKIN: No ulcerations or rashes, good skin turgor, no jaundice VASCULAR: Good capillary refill, neurovascular bundle appears to be intact General: Alert, Oriented X3, Cooperative, No acute distress Heart: Regular rate Lungs: Clear Abdomen: Soft, No tenderness Extremities: No clubbing, No cyanosis Skin: No breakdown Labs LABS EXAM: Brain MRI without contrast. HISTORY: Left leg weakness. Right hand clumsiness. TECHNIQUE: Multiplanar, multisequence magnetic resonance imaging of the brain was performed without contrast. COMPARISON: CT dated 04/02/2020. FINDINGS: There is no restricted diffusion to suggest acute or subacute infarction. There is no susceptibility effect to suggest hemorrhage. There is no mass effect or midline shift. There is no hydrocephalus. There are scattered focal areas of T2 such FLAIR hyperintensity within the cerebral white matter, the largest of which are seen within the right posterior cerebral distribution. The orbits are unremarkable. The paranasal sinuses are clear. There is a small amount of right mastoid fluid. There are normal flow voids within the cerebral vessels. No calvarial lesion is seen. IMPRESSION: 1. No acute intracranial finding. 2. Multiple scattered areas of signal change throughout the cerebral white matter. The differential in a patient of this age includes changes due to chronic small vessel disease as well as demyelinating disease. Electronically signed by: Luisa Interiano MD (04/03/2020 4:51 PM) [id number] DICTATED and SIGNED BY: LUISA INTERIANO MD DATE: 04/03/20 1651 Laboratory Tests Test 04/04/20 07:00 04/04/20 08:15 White Blood Count 5.5 x10^3/uL (4.0-11.0) Red Blood Count 5.00 x10^6/uL (3.50-5.40) Hemoglobin 11.6 g/dL (12.0-15.5) Hematocrit 35.7 % (36.0-47.0) Mean Corpuscular Volume 71 fL (79-100) Mean Corpuscular Hemoglobin 23 pg (25-35) Mean Corpuscular Hemoglobin Concent 32 g/dL (31-37) Red Cell Distribution Width 19.1 % (11.5-14.5) Platelet Count 258 x10^3/uL (140-400) Neutrophils (%) (Auto) 55 % (31-73) Lymphocytes (%) (Auto) 35 % (24-48) Monocytes (%) (Auto) 6 % (0-9) Eosinophils (%) (Auto) 4 % (0-3) Basophils (%) (Auto) 1 % (0-3) Neutrophils # (Auto) 3.0 x10^3/uL (1.8-7.7) Lymphocytes # (Auto) 1.9 x10^3/uL (1.0-4.8) Monocytes # (Auto) 0.3 x10^3/uL (0.0-1.1) Eosinophils # (Auto) 0.2 x10^3/uL (0.0-0.7) Basophils # (Auto) 0.1 x10^3/uL (0.0-0.2) Sodium Level 139 mmol/L (136-145) Potassium Level 3.7 mmol/L (3.5-5.1) Chloride Level 104 mmol/L (98-107) Carbon Dioxide Level 29 mmol/L (21-32) Anion Gap 6 (6-14) Blood Urea Nitrogen 11 mg/dL (7-20) Creatinine 0.9 mg/dL (0.6-1.0) Estimated GFR (Cockcroft-Gault) 65.8 BUN/Creatinine Ratio 12 (6-20) Glucose Level 97 mg/dL (70-99) Calcium Level 8.2 mg/dL (8.5-10.1) Total Bilirubin 0.3 mg/dL (0.2-1.0) Aspartate Amino Transf (AST/SGOT) 27 U/L (15-37) Alanine Aminotransferase (ALT/SGPT) 30 U/L (14-59) Alkaline Phosphatase 64 U/L (46-116) Total Protein 6.7 g/dL (6.4-8.2) Albumin 3.4 g/dL (3.4-5.0) Albumin/Globulin Ratio 1.0 (1.0-1.7) Urine Collection Type Unknown Urine Color Yellow Urine Clarity Clear Urine pH 6.0 (<5.0-8.0) Urine Specific [place] 1.020 (1.000-1.030) Urine Protein Negative mg/dL (NEG-TRACE) Urine Glucose (UA) Negative mg/dL (NEG) Urine Ketones (Stick) Negative mg/dL (NEG) Urine Blood Negative (NEG) Urine Nitrite Negative (NEG) Urine Bilirubin Small (NEG) Urine Urobilinogen Dipstick 1.0 mg/dL (0.2 mg/dL) Urine Leukocyte Esterase Moderate (NEG) Urine RBC 1-2 /HPF (0-2) Urine WBC 20-40 /HPF (0-4) Urine Squamous Epithelial Cells Mod /LPF Urine Bacteria Many /HPF (0-FEW) Urine Mucus Marked /LPF Assessment and Plan Assessmemt and Plan Problems Medical Problems: (1) E03.9 Status: Acute (2) Left leg weakness Status: Acute Comment Review of Relevant I have reviewed the following items cuong (where applicable) has been applied. Labs Laboratory Tests Test 04/02/20 15:15 04/03/20 04:55 04/04/20 07:00 04/04/20 08:15 Ferritin 5 ng/mL (8-252) Vitamin B12 Level 273 pg/mL (247-911) 231 pg/mL (247-911) 25-Hydroxy Vitamin D Total 12.3 ng/mL (30-100) Free Thyroxine 0.20 ng/dL (0.76-1.46) Free Triiodothyronine (T3) pg/mL < 0.50 pg/mL (2.18-3.98) Total Triiodothyronine <20 ng/dL (71-180) HIV (1&2) Antibody Screen Nonreactive (Nonreactive) White Blood Count 6.4 x10^3/uL (4.0-11.0) 5.5 x10^3/uL (4.0-11.0) Red Blood Count 5.03 x10^6/uL (3.50-5.40) 5.00 x10^6/uL (3.50-5.40) Hemoglobin 11.5 g/dL (12.0-15.5) 11.6 g/dL (12.0-15.5) Hematocrit 35.6 % (36.0-47.0) 35.7 % (36.0-47.0) Mean Corpuscular Volume 71 fL (79-100) 71 fL (79-100) Mean Corpuscular Hemoglobin 23 pg (25-35) 23 pg (25-35) Mean Corpuscular Hemoglobin Concent 32 g/dL (31-37) 32 g/dL (31-37) Red Cell Distribution Width 19.1 % (11.5-14.5) 19.1 % (11.5-14.5) Platelet Count 254 x10^3/uL (140-400) 258 x10^3/uL (140-400) Neutrophils (%) (Auto) 53 % (31-73) 55 % (31-73) Lymphocytes (%) (Auto) 36 % (24-48) 35 % (24-48) Monocytes (%) (Auto) 5 % (0-9) 6 % (0-9) Eosinophils (%) (Auto) 4 % (0-3) 4 % (0-3) Basophils (%) (Auto) 1 % (0-3) 1 % (0-3) Neutrophils # (Auto) 3.4 x10^3/uL (1.8-7.7) 3.0 x10^3/uL (1.8-7.7) Lymphocytes # (Auto) 2.3 x10^3/uL (1.0-4.8) 1.9 x10^3/uL (1.0-4.8) Monocytes # (Auto) 0.3 x10^3/uL (0.0-1.1) 0.3 x10^3/uL (0.0-1.1) Eosinophils # (Auto) 0.3 x10^3/uL (0.0-0.7) 0.2 x10^3/uL (0.0-0.7) Basophils # (Auto) 0.1 x10^3/uL (0.0-0.2) 0.1 x10^3/uL (0.0-0.2) Sodium Level 140 mmol/L (136-145) 139 mmol/L (136-145) Potassium Level 3.6 mmol/L (3.5-5.1) 3.7 mmol/L (3.5-5.1) Chloride Level 104 mmol/L (98-107) 104 mmol/L (98-107) Carbon Dioxide Level 28 mmol/L (21-32) 29 mmol/L (21-32) Anion Gap 8 (6-14) 6 (6-14) Blood Urea Nitrogen 11 mg/dL (7-20) 11 mg/dL (7-20) Creatinine 0.9 mg/dL (0.6-1.0) 0.9 mg/dL (0.6-1.0) Estimated GFR (Cockcroft-Gault) 65.8 65.8 Glucose Level 99 mg/dL (70-99) 97 mg/dL (70-99) Calcium Level 8.2 mg/dL (8.5-10.1) 8.2 mg/dL (8.5-10.1) Phosphorus Level 4.0 mg/dL (2.6-4.7) Magnesium Level 2.4 mg/dL (1.8-2.4) Iron Level 45 ug/dL (50-170) Total Iron Binding Capacity 459 ug/dL (250-450) Iron Saturation 10 % (15-34) C-Reactive Protein, Quantitative 2.1 mg/L (0-3.3) Cortisol AM Sample 11.0 ug/dL (4.3-22.4) BUN/Creatinine Ratio 12 (6-20) Total Bilirubin 0.3 mg/dL (0.2-1.0) Aspartate Amino Transf (AST/SGOT) 27 U/L (15-37) Alanine Aminotransferase (ALT/SGPT) 30 U/L (14-59) Alkaline Phosphatase 64 U/L (46-116) Total Protein 6.7 g/dL (6.4-8.2) Albumin 3.4 g/dL (3.4-5.0) Albumin/Globulin Ratio 1.0 (1.0-1.7) Urine Collection Type Unknown Urine Color Yellow Urine Clarity Clear Urine pH 6.0 (<5.0-8.0) Urine Specific [place] 1.020 (1.000-1.030) Urine Protein Negative mg/dL (NEG-TRACE) Urine Glucose (UA) Negative mg/dL (NEG) Urine Ketones (Stick) Negative mg/dL (NEG) Urine Blood Negative (NEG) Urine Nitrite Negative (NEG) Urine Bilirubin Small (NEG) Urine Urobilinogen Dipstick 1.0 mg/dL (0.2 mg/dL) Urine Leukocyte Esterase Moderate (NEG) Urine RBC 1-2 /HPF (0-2) Urine WBC 20-40 /HPF (0-4) Urine Squamous Epithelial Cells Mod /LPF Urine Bacteria Many /HPF (0-FEW) Urine Mucus Marked /LPF Laboratory Tests Test 04/04/20 07:00 04/04/20 08:15 White Blood Count 5.5 x10^3/uL (4.0-11.0) Red Blood Count 5.00 x10^6/uL (3.50-5.40) Hemoglobin 11.6 g/dL (12.0-15.5) Hematocrit 35.7 % (36.0-47.0) Mean Corpuscular Volume 71 fL (79-100) Mean Corpuscular Hemoglobin 23 pg (25-35) Mean Corpuscular Hemoglobin Concent 32 g/dL (31-37) Red Cell Distribution Width 19.1 % (11.5-14.5) Platelet Count 258 x10^3/uL (140-400) Neutrophils (%) (Auto) 55 % (31-73) Lymphocytes (%) (Auto) 35 % (24-48) Monocytes (%) (Auto) 6 % (0-9) Eosinophils (%) (Auto) 4 % (0-3) Basophils (%) (Auto) 1 % (0-3) Neutrophils # (Auto) 3.0 x10^3/uL (1.8-7.7) Lymphocytes # (Auto) 1.9 x10^3/uL (1.0-4.8) Monocytes # (Auto) 0.3 x10^3/uL (0.0-1.1) Eosinophils # (Auto) 0.2 x10^3/uL (0.0-0.7) Basophils # (Auto) 0.1 x10^3/uL (0.0-0.2) Sodium Level 139 mmol/L (136-145) Potassium Level 3.7 mmol/L (3.5-5.1) Chloride Level 104 mmol/L (98-107) Carbon Dioxide Level 29 mmol/L (21-32) Anion Gap 6 (6-14) Blood Urea Nitrogen 11 mg/dL (7-20) Creatinine 0.9 mg/dL (0.6-1.0) Estimated GFR (Cockcroft-Gault) 65.8 BUN/Creatinine Ratio 12 (6-20) Glucose Level 97 mg/dL (70-99) Calcium Level 8.2 mg/dL (8.5-10.1) Total Bilirubin 0.3 mg/dL (0.2-1.0) Aspartate Amino Transf (AST/SGOT) 27 U/L (15-37) Alanine Aminotransferase (ALT/SGPT) 30 U/L (14-59) Alkaline Phosphatase 64 U/L (46-116) Total Protein 6.7 g/dL (6.4-8.2) Albumin 3.4 g/dL (3.4-5.0) Albumin/Globulin Ratio 1.0 (1.0-1.7) Urine Collection Type Unknown Urine Color Yellow Urine Clarity Clear Urine pH 6.0 (<5.0-8.0) Urine Specific [place] 1.020 (1.000-1.030) Urine Protein Negative mg/dL (NEG-TRACE) Urine Glucose (UA) Negative mg/dL (NEG) Urine Ketones (Stick) Negative mg/dL (NEG) Urine Blood Negative (NEG) Urine Nitrite Negative (NEG) Urine Bilirubin Small (NEG) Urine Urobilinogen Dipstick 1.0 mg/dL (0.2 mg/dL) Urine Leukocyte Esterase Moderate (NEG) Urine RBC 1-2 /HPF (0-2) Urine WBC 20-40 /HPF (0-4) Urine Squamous Epithelial Cells Mod /LPF Urine Bacteria Many /HPF (0-FEW) Urine Mucus Marked /LPF Medications Current Medications Ondansetron HCl (Zofran) 4 mg PRN Q8HRS PRN IV NAUSEA/VOMITING; Start 04/02/20 at 10:30; Stop 04/03/20 at 10:29; Status DC Sennosides (Senna) 17.2 mg PRN BID PRN PO CONSTIPATION; Start 04/02/20 at 14:15 Docusate Sodium (Colace) 100 mg PRN DAILY PRN PO HARD STOOLS; Start 04/02/20 at 14:15; Stop 04/03/20 at 09:11; Status DC Thiamine HCl 100 mg/Dextrose 51 ml @ 102 mls/hr DAILY IV Last administered on 04/03/20at 10:08; Start 04/02/20 at 15:00 Ondansetron HCl (Zofran) 4 mg PRN Q6HRS PRN IVP NAUSEA/VOMITING; Start 04/02/20 at 14:15 Potassium Chloride (Klor-Con) 40 meq 1X PRN PO PER PROTOCOL; Start 04/02/20 at 14:15; Status UNV Magnesium Oxide (Magnesium Oxide) 400 mg BID PO ; Start 04/02/20 at 21:00; Stop 04/04/20 at 09:01; Status UNV Potassium Chloride/Water 100 ml @ 100 mls/hr Q1H IV ; Start 04/02/20 at 14:15; Stop 04/02/20 at 18:14; Status UNV Magnesium Sulfate 50 ml @ 25 mls/hr Q24H IV ; Start 04/02/20 at 14:15; Stop 04/04/20 at 16:14; Status UNV Potassium Chloride/Water 100 ml @ 100 mls/hr Q1H PRN IV low k; Start 04/02/20 at 14:15; Status UNV Dextrose (Dextrose 50%-Water Syringe) 12.5 gm PRN Q15MIN PRN IV SEE COMMENTS; Start 04/02/20 at 14:15 Acetaminophen (Tylenol) 650 mg PRN Q4HRS PRN PO TEMP OVER 100.4F OR MILD PAIN Last administered on 04/03/20at 10:31; Start 04/02/20 at 14:15 Docusate Sodium (Colace) 100 mg PRN BID PRN PO HARD STOOLS; Start 04/02/20 at 14:15 Levothyroxine Sodium (Synthroid) 175 mcg DAILY06 PO Last administered on 04/04/20at 08:03; Start 04/03/20 at 06:00 Info (Non-Icu Electrolyte Protocol) 1 ea CONT PRN PRN MC SEE COMMENTS; Start at 15:00 Diazepam (Valium) 10 mg 1X PRN PRN PO ANXIETY Last administered on 04/03/20at 15:45; Start 04/03/20 at 14:00 Cyanocobalamin (Vitamin B-12) 1,000 mcg DAILY IM Last administered on 04/03/20at 19:13; Start 04/03/20 at 14:00; Stop 04/04/20 at 09:01 Famotidine (Pepcid) 20 mg QHS PO Last administered on 04/03/20at 21:27; Start 04/03/20 at 21:00 Vitals/I & O Vital Sign - Last 24 Hours 9/10/20 9/10/20 9/10/20 9/10/20 11:00 15:00 19:00 20:00 Temp 97.7 97.7 97.6 97.7 97.7 97.6 Pulse 72 75 73 Resp 18 18 18 B/P (MAP) 135/85 (102) 116/71 (86) 121/72 (88) Pulse Ox 94 97 95 O2 Delivery Room Air Room Air Room Air Room Air 04/03/20 04/04/20 23:00 03:00 Temp 97.9 98.0 97.9 98.0 Pulse 69 65 Resp 18 18 B/P (MAP) 101/58 (72) 107/67 (80) Pulse Ox 96 95 O2 Delivery Room Air Room Air Intake and Output 04/03/20 04/03/20 04/04/20 15:00 23:00 07:00 Intake Total 0 ml 350 ml Balance 0 ml 350 ml Justicifation of Admission Dx: Justifications for Admission: Justification of Admission Dx: Yes VARGHESE WATKINS MD Apr 04, 2020 08:45
[2020-04-04] MEDS ORDERED: diazePAM 5 MG TABLET PO ONE (09:00)
[2020-04-04] MEDS: THIAMINE INJ 100 MG in IV DEXTROSE 5% 50 ML IV SCH (09:43)
[2020-04-04] MEDS: CYANOCOBALAMIN (VITAMIN B-12) 1,000 MCG/ML VIAL IM SCH (09:44)
--- NOTE | 2020-04-04 10:15 | PDOC ---
PROGRESS NOTES Date of Service DATE: 04/04/20 TIME: 10:13 Assessment Problems Medical Problems: (1) E03.9 Status: Acute (2) Left leg weakness Status: Acute Right hand weakness and clumsiness, left foot weakness, hard to reconcile this on the basis of any organic neurological issue. Multiple sclerosis needs to be excluded; MRI is concerning. Multiple entrapment neuropathies are possible but unlikely to occur simultaneously and wax and wane for a few days at a time over several years. I find no evidence of cervical or lumbar radiculopathy, myelopathy, peripheral neuropathy. The distribution of weakness in the left foot is unusual. Note normal head CT. However, she is profoundly hypothyroid and low on B12, which can mimic all sorts of neurological issues. History of seizures, resolved. 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 Oriented to time, place and person. PERRL. EOMI. CN: no focal findings. Muscle tone: normal. Muscle strength: 4/5 left foot weakness both dorsi and plantar flexion, 5-/5 right hand; strength is otherwise 5/5 DTR: 2+ Plantar reflex: Flexor Gait: not examined in bed. Sensory exam: Patchy loss, distal left lower extremity, circumferential with a sharp line of demarcation. No cerebellar signs elicited. Review of Relevant I have reviewed the following items cuong (where applicable) has been applied. Labs Laboratory Tests Test 04/02/20 15:15 04/03/20 04:55 04/04/20 07:00 04/04/20 08:15 Ferritin 5 ng/mL (8-252) Vitamin B12 Level 273 pg/mL (247-911) 231 pg/mL (247-911) 25-Hydroxy Vitamin D Total 12.3 ng/mL (30-100) Free Thyroxine 0.20 ng/dL (0.76-1.46) Free Triiodothyronine (T3) pg/mL < 0.50 pg/mL (2.18-3.98) Total Triiodothyronine <20 ng/dL (71-180) HIV (1&2) Antibody Screen Nonreactive (Nonreactive) White Blood Count 6.4 x10^3/uL (4.0-11.0) 5.5 x10^3/uL (4.0-11.0) Red Blood Count 5.03 x10^6/uL (3.50-5.40) 5.00 x10^6/uL (3.50-5.40) Hemoglobin 11.5 g/dL (12.0-15.5) 11.6 g/dL (12.0-15.5) Hematocrit 35.6 % (36.0-47.0) 35.7 % (36.0-47.0) Mean Corpuscular Volume 71 fL (79-100) 71 fL (79-100) Mean Corpuscular Hemoglobin 23 pg (25-35) 23 pg (25-35) Mean Corpuscular Hemoglobin Concent 32 g/dL (31-37) 32 g/dL (31-37) Red Cell Distribution Width 19.1 % (11.5-14.5) 19.1 % (11.5-14.5) Platelet Count 254 x10^3/uL (140-400) 258 x10^3/uL (140-400) Neutrophils (%) (Auto) 53 % (31-73) 55 % (31-73) Lymphocytes (%) (Auto) 36 % (24-48) 35 % (24-48) Monocytes (%) (Auto) 5 % (0-9) 6 % (0-9) Eosinophils (%) (Auto) 4 % (0-3) 4 % (0-3) Basophils (%) (Auto) 1 % (0-3) 1 % (0-3) Neutrophils # (Auto) 3.4 x10^3/uL (1.8-7.7) 3.0 x10^3/uL (1.8-7.7) Lymphocytes # (Auto) 2.3 x10^3/uL (1.0-4.8) 1.9 x10^3/uL (1.0-4.8) Monocytes # (Auto) 0.3 x10^3/uL (0.0-1.1) 0.3 x10^3/uL (0.0-1.1) Eosinophils # (Auto) 0.3 x10^3/uL (0.0-0.7) 0.2 x10^3/uL (0.0-0.7) Basophils # (Auto) 0.1 x10^3/uL (0.0-0.2) 0.1 x10^3/uL (0.0-0.2) Sodium Level 140 mmol/L (136-145) 139 mmol/L (136-145) Potassium Level 3.6 mmol/L (3.5-5.1) 3.7 mmol/L (3.5-5.1) Chloride Level 104 mmol/L (98-107) 104 mmol/L (98-107) Carbon Dioxide Level 28 mmol/L (21-32) 29 mmol/L (21-32) Anion Gap 8 (6-14) 6 (6-14) Blood Urea Nitrogen 11 mg/dL (7-20) 11 mg/dL (7-20) Creatinine 0.9 mg/dL (0.6-1.0) 0.9 mg/dL (0.6-1.0) Estimated GFR (Cockcroft-Gault) 65.8 65.8 Glucose Level 99 mg/dL (70-99) 97 mg/dL (70-99) Calcium Level 8.2 mg/dL (8.5-10.1) 8.2 mg/dL (8.5-10.1) Phosphorus Level 4.0 mg/dL (2.6-4.7) Magnesium Level 2.4 mg/dL (1.8-2.4) Iron Level 45 ug/dL (50-170) Total Iron Binding Capacity 459 ug/dL (250-450) Iron Saturation 10 % (15-34) C-Reactive Protein, Quantitative 2.1 mg/L (0-3.3) Cortisol AM Sample 11.0 ug/dL (4.3-22.4) BUN/Creatinine Ratio 12 (6-20) Total Bilirubin 0.3 mg/dL (0.2-1.0) Aspartate Amino Transf (AST/SGOT) 27 U/L (15-37) Alanine Aminotransferase (ALT/SGPT) 30 U/L (14-59) Alkaline Phosphatase 64 U/L (46-116) Total Protein 6.7 g/dL (6.4-8.2) Albumin 3.4 g/dL (3.4-5.0) Albumin/Globulin Ratio 1.0 (1.0-1.7) Urine Collection Type Unknown Urine Color Yellow Urine Clarity Clear Urine pH 6.0 (<5.0-8.0) Urine Specific [place] 1.020 (1.000-1.030) Urine Protein Negative mg/dL (NEG-TRACE) Urine Glucose (UA) Negative mg/dL (NEG) Urine Ketones (Stick) Negative mg/dL (NEG) Urine Blood Negative (NEG) Urine Nitrite Negative (NEG) Urine Bilirubin Small (NEG) Urine Urobilinogen Dipstick 1.0 mg/dL (0.2 mg/dL) Urine Leukocyte Esterase Moderate (NEG) Urine RBC 1-2 /HPF (0-2) Urine WBC 20-40 /HPF (0-4) Urine Squamous Epithelial Cells Mod /LPF Urine Bacteria Many /HPF (0-FEW) Urine Mucus Marked /LPF Urine Opiates Screen Neg (NEG) Urine Methadone Screen Neg (NEG) Urine Barbiturates Neg (NEG) Urine Phencyclidine Screen Neg (NEG) Urine Amphetamine/Methamphetamine Neg (NEG) Urine Benzodiazepines Screen Pos (NEG) Urine Cocaine Screen Neg (NEG) Urine Cannabinoids Screen Neg (NEG) Urine Ethyl Alcohol Neg (NEG) Laboratory Tests Test 04/04/20 07:00 04/04/20 08:15 White Blood Count 5.5 x10^3/uL (4.0-11.0) Red Blood Count 5.00 x10^6/uL (3.50-5.40) Hemoglobin 11.6 g/dL (12.0-15.5) Hematocrit 35.7 % (36.0-47.0) Mean Corpuscular Volume 71 fL (79-100) Mean Corpuscular Hemoglobin 23 pg (25-35) Mean Corpuscular Hemoglobin Concent 32 g/dL (31-37) Red Cell Distribution Width 19.1 % (11.5-14.5) Platelet Count 258 x10^3/uL (140-400) Neutrophils (%) (Auto) 55 % (31-73) Lymphocytes (%) (Auto) 35 % (24-48) Monocytes (%) (Auto) 6 % (0-9) Eosinophils (%) (Auto) 4 % (0-3) Basophils (%) (Auto) 1 % (0-3) Neutrophils # (Auto) 3.0 x10^3/uL (1.8-7.7) Lymphocytes # (Auto) 1.9 x10^3/uL (1.0-4.8) Monocytes # (Auto) 0.3 x10^3/uL (0.0-1.1) Eosinophils # (Auto) 0.2 x10^3/uL (0.0-0.7) Basophils # (Auto) 0.1 x10^3/uL (0.0-0.2) Sodium Level 139 mmol/L (136-145) Potassium Level 3.7 mmol/L (3.5-5.1) Chloride Level 104 mmol/L (98-107) Carbon Dioxide Level 29 mmol/L (21-32) Anion Gap 6 (6-14) Blood Urea Nitrogen 11 mg/dL (7-20) Creatinine 0.9 mg/dL (0.6-1.0) Estimated GFR (Cockcroft-Gault) 65.8 BUN/Creatinine Ratio 12 (6-20) Glucose Level 97 mg/dL (70-99) Calcium Level 8.2 mg/dL (8.5-10.1) Total Bilirubin 0.3 mg/dL (0.2-1.0) Aspartate Amino Transf (AST/SGOT) 27 U/L (15-37) Alanine Aminotransferase (ALT/SGPT) 30 U/L (14-59) Alkaline Phosphatase 64 U/L (46-116) Total Protein 6.7 g/dL (6.4-8.2) Albumin 3.4 g/dL (3.4-5.0) Albumin/Globulin Ratio 1.0 (1.0-1.7) Urine Collection Type Unknown Urine Color Yellow Urine Clarity Clear Urine pH 6.0 (<5.0-8.0) Urine Specific [place] 1.020 (1.000-1.030) Urine Protein Negative mg/dL (NEG-TRACE) Urine Glucose (UA) Negative mg/dL (NEG) Urine Ketones (Stick) Negative mg/dL (NEG) Urine Blood Negative (NEG) Urine Nitrite Negative (NEG) Urine Bilirubin Small (NEG) Urine Urobilinogen Dipstick 1.0 mg/dL (0.2 mg/dL) Urine Leukocyte Esterase Moderate (NEG) Urine RBC 1-2 /HPF (0-2) Urine WBC 20-40 /HPF (0-4) Urine Squamous Epithelial Cells Mod /LPF Urine Bacteria Many /HPF (0-FEW) Urine Mucus Marked /LPF Urine Opiates Screen Neg (NEG) Urine Methadone Screen Neg (NEG) Urine Barbiturates Neg (NEG) Urine Phencyclidine Screen Neg (NEG) Urine Amphetamine/Methamphetamine Neg (NEG) Urine Benzodiazepines Screen Pos (NEG) Urine Cocaine Screen Neg (NEG) Urine Cannabinoids Screen Neg (NEG) Urine Ethyl Alcohol Neg (NEG) Medications Current Medications Ondansetron HCl (Zofran) 4 mg PRN Q8HRS PRN IV NAUSEA/VOMITING; Start 04/02/20 at 10:30; Stop 04/03/20 at 10:29; Status DC Sennosides (Senna) 17.2 mg PRN BID PRN PO CONSTIPATION; Start 04/02/20 at 14:15 Docusate Sodium (Colace) 100 mg PRN DAILY PRN PO HARD STOOLS; Start 04/02/20 at 14:15; Stop 04/03/20 at 09:11; Status DC Thiamine HCl 100 mg/Dextrose 51 ml @ 102 mls/hr DAILY IV Last administered on 04/04/20at 09:43; Start 04/02/20 at 15:00 Ondansetron HCl (Zofran) 4 mg PRN Q6HRS PRN IVP NAUSEA/VOMITING; Start 04/02/20 at 14:15 Potassium Chloride (Klor-Con) 40 meq 1X PRN PO PER PROTOCOL; Start 04/02/20 at 14:15; Status UNV Magnesium Oxide (Magnesium Oxide) 400 mg BID PO ; Start 04/02/20 at 21:00; Stop 04/04/20 at 09:01; Status UNV Potassium Chloride/Water 100 ml @ 100 mls/hr Q1H IV ; Start 04/02/20 at 14:15; Stop 04/02/20 at 18:14; Status UNV Magnesium Sulfate 50 ml @ 25 mls/hr Q24H IV ; Start 04/02/20 at 14:15; Stop 04/04/20 at 16:14; Status UNV Potassium Chloride/Water 100 ml @ 100 mls/hr Q1H PRN IV low k; Start 04/02/20 at 14:15; Status UNV Dextrose (Dextrose 50%-Water Syringe) 12.5 gm PRN Q15MIN PRN IV SEE COMMENTS; Start 04/02/20 at 14:15 Acetaminophen (Tylenol) 650 mg PRN Q4HRS PRN PO TEMP OVER 100.4F OR MILD PAIN Last administered on 04/03/20at 10:31; Start 04/02/20 at 14:15 Docusate Sodium (Colace) 100 mg PRN BID PRN PO HARD STOOLS; Start 04/02/20 at 14:15 Levothyroxine Sodium (Synthroid) 175 mcg DAILY06 PO Last administered on 0at 08:03; Start 04/03/20 at 06:00 Info (Non-Icu Electrolyte Protocol) 1 ea CONT PRN PRN MC SEE COMMENTS; Start 04/02/20 at 15:00 Diazepam (Valium) 10 mg 1X PRN PRN PO ANXIETY Last administered on 04/03/20at 15:45; Start 04/03/20 at 14:00 Cyanocobalamin (Vitamin B-12) 1,000 mcg DAILY IM Last administered on 04/04/20at 09:44; Start 04/03/20 at 14:00; Stop 04/04/20 at 09:01; Status DC Famotidine (Pepcid) 20 mg QHS PO Last administered on 04/03/20at 21:27; Start 04/03/20 at 21:00 Diazepam (Valium) 10 mg 1X ONCE PO ; Start 04/04/20 at 09:00; Stop 04/04/20 at 09:01; Status DC Vitals/I & O Vital Sign - Last 24 Hours 04/03/20 04/03/20 04/03/20 04/03/20 11:00 15:00 19:00 20:00 Temp 97.7 97.7 97.6 97.7 97.7 97.6 Pulse 72 75 73 Resp 18 18 18 B/P (MAP) 135/85 (102) 116/71 (86) 121/72 (88) Pulse Ox 94 97 95 O2 Delivery Room Air Room Air Room Air Room Air 04/03/20 04/04/20 04/04/20 23:00 03:00 07:30 Temp 97.9 98.0 97.5 97.9 98.0 97.5 Pulse 69 65 67 Resp 18 18 18 B/P (MAP) 101/58 (72) 107/67 (80) 125/71 (89) Pulse Ox 96 95 95 O2 Delivery Room Air Room Air Room Air Intake and Output 04/03/20 04/03/20 04/04/20 15:00 23:00 07:00 Intake Total 0 ml 350 ml Balance 0 ml 350 ml Images Brain MRI without contrast. HISTORY: Left leg weakness. Right hand clumsiness. TECHNIQUE: Multiplanar, multisequence magnetic resonance imaging of the brain was performed without contrast. COMPARISON: CT dated 04/02/2020. FINDINGS: There is no restricted diffusion to suggest acute or subacute infarction. There is no susceptibility effect to suggest hemorrhage. There is no mass effect or midline shift. There is no hydrocephalus. There are scattered focal areas of T2 such FLAIR hyperintensity within the cerebral white matter, the largest of which are seen within the right posterior cerebral distribution. The orbits are unremarkable. The paranasal sinuses are clear. There is a small amount of right mastoid fluid. There are normal flow voids within the cerebral vessels. No calvarial lesion is seen. IMPRESSION: 1. No acute intracranial finding. 2. Multiple scattered areas of signal change throughout the cerebral white matter. The differential in a patient of this age includes changes due to chronic small vessel disease as well as demyelinating disease. Justicifation of Admission Dx: Justifications for Admission: Justification of Admission Dx: Yes LUCY JACKSON MD Apr 04, 2020 10:15
[2020-04-04 11:15] VITALS: BP 145/89
[2020-04-04] MEDS: VITAMIN B12,B9,B6 COMPLEX 1 TABLET. PO SCH (12:19)
--- NOTE | 2020-04-04 12:41 | PDOC ---
Date of Service: DATE: 04/04/20 TIME: 12:38 Subjective: Subjective: No GI complaints. Objective: Vital Signs: Vital Signs Date Time Temp Pulse Resp B/P (MAP) Pulse Ox O2 Delivery O2 Flow Rate FiO2 04/04/20 07:30 97.5 67 18 125/71 (89) 95 Room Air 97.5 Labs: Laboratory Tests Test 04/04/20 07:00 04/04/20 08:15 White Blood Count 5.5 x10^3/uL Red Blood Count 5.00 x10^6/uL Hemoglobin 11.6 g/dL Hematocrit 35.7 % Mean Corpuscular Volume 71 fL Mean Corpuscular Hemoglobin 23 pg Mean Corpuscular Hemoglobin Concent 32 g/dL Red Cell Distribution Width 19.1 % Platelet Count 258 x10^3/uL Neutrophils (%) (Auto) 55 % Lymphocytes (%) (Auto) 35 % Monocytes (%) (Auto) 6 % Eosinophils (%) (Auto) 4 % Basophils (%) (Auto) 1 % Neutrophils # (Auto) 3.0 x10^3/uL Lymphocytes # (Auto) 1.9 x10^3/uL Monocytes # (Auto) 0.3 x10^3/uL Eosinophils # (Auto) 0.2 x10^3/uL Basophils # (Auto) 0.1 x10^3/uL Sodium Level 139 mmol/L Potassium Level 3.7 mmol/L Chloride Level 104 mmol/L Carbon Dioxide Level 29 mmol/L Anion Gap 6 Blood Urea Nitrogen 11 mg/dL Creatinine 0.9 mg/dL Estimated GFR (Cockcroft-Gault) 65.8 BUN/Creatinine Ratio 12 Glucose Level 97 mg/dL Calcium Level 8.2 mg/dL Total Bilirubin 0.3 mg/dL Aspartate Amino Transf (AST/SGOT) 27 U/L Alanine Aminotransferase (ALT/SGPT) 30 U/L Alkaline Phosphatase 64 U/L Total Protein 6.7 g/dL Albumin 3.4 g/dL Albumin/Globulin Ratio 1.0 Urine Collection Type Unknown Urine Color Yellow Urine Clarity Clear Urine pH 6.0 Urine Specific [place] 1.020 Urine Protein Negative mg/dL Urine Glucose (UA) Negative mg/dL Urine Ketones (Stick) Negative mg/dL Urine Blood Negative Urine Nitrite Negative Urine Bilirubin Small Urine Urobilinogen Dipstick 1.0 mg/dL Urine Leukocyte Esterase Moderate Urine RBC 1-2 /HPF Urine WBC 20-40 /HPF Urine Squamous Epithelial Cells Mod /LPF Urine Bacteria Many /HPF Urine Mucus Marked /LPF Urine Opiates Screen Neg Urine Methadone Screen Neg Urine Barbiturates Neg Urine Phencyclidine Screen Neg Urine Amphetamine/Methamphetamine Neg Urine Benzodiazepines Screen Pos Urine Cocaine Screen Neg Urine Cannabinoids Screen Neg Urine Ethyl Alcohol Neg Imaging: Brain MRI IMPRESSION: 1. No acute intracranial finding. 2. Multiple scattered areas of signal change throughout the cerebral white samantha er. The differential in a patient of this age includes changes due to chronic small vessel disease as well as demyelinating disease. PE: GEN: NAD LUNGS: CTAB HEART: RRR ABD: NABS, S/ND/NT NEURO/PSYCH: A & O 3 A/P: LLE and right hand weakness - plans for brain MRI w/ contrast Mild SHOSHANA/B12 deficiency, hypothyroidism - 'scopes done last year GERD - controlled w/ H2 isma -- Continue same per GI. Justicifation of Admission Dx: Justifications for Admission: Justification of Admission Dx: Yes MARIA LUZ GUTIÉRREZ Apr 04, 2020 12:41
[2020-04-04] MEDS ORDERED: GADOTERATE 7.5 MMOL/15ML VIAL. IVP ONE (14:15)
[2020-04-04 15:00] VITALS: BP 113/66
--- NOTE | 2020-04-04 15:17 | RAD ---
MRI of the brain without contrast 04/04/2020 CLINICAL HISTORY: Left leg weakness. Right hand clumsiness. The patient had a MRI of the brain without contrast yesterday which demonstrated areas of signal abnormality throughout the white matter concerning for a demyelinating disorder such as multiple sclerosis. TECHNIQUE: After the intravenous administration of 25 cc of DOTAREM, enhanced T1-weighted sagittal, axial and coronal images of the brain were obtained. FINDINGS: Comparison is made to the patient's MRI of the brain dated 04/03/2020. The ventricles and sulci are within normal limits in size and configuration. No area of abnormal contrast enhancement is seen. IMPRESSION: No area of abnormal contrast enhancement is seen. Electronically signed by: Asad Yi MD (04/04/2020 3:14 PM) [id number]
--- NOTE | 2020-04-04 17:04 | NUR ---
JEREMIAS following. Spoke with RN and reviewed chart. Spoke with pt today who was tearful. Pt to have another MRI today. 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 JEREMIAS phoned and faxed clinicals from today to Sher at [facility] acute rehab. Awaiting insurance authorization. JEREMIAS following. Addendum: 04/04/20 at 1710 by HEIDY MCDOWELL JEREMIAS added to weekend discharge list pending authorization.
[2020-04-04 19:00] VITALS: BP 140/85
[2020-04-04] MEDS: FAMOTIDINE 20 MG TABLET. PO SCH (20:56)
[2020-04-04 23:00] VITALS: BP 145/90
[2020-04-05 03:00] VITALS: BP 101/70
[2020-04-05 07:00] VITALS: BP 129/88
[2020-04-05] MEDS: VITAMIN B12,B9,B6 COMPLEX 1 TABLET. PO SCH (08:53)
[2020-04-05] MEDS: THIAMINE 100 MG TABLET. PO SCH (08:53)
[2020-04-05] MEDS: LEVOTHYROXINE 175 MCG TABLET PO SCH (08:53)
--- NOTE | 2020-04-05 09:41 | PDOC ---
PROGRESS NOTES Date of Service: DATE: 04/05/20 TIME: 09:39 Chief Complaint Chief Complaint Images: Images Head CT IMPRESSION: No acute intracranial findings. impression Acute left lower extremity and right hand weakness concerning for multiple sclerosis versus hypothyroid myopathy elevated TSH, extreme , concerning for uncontrolled hypothyroidism versus malabsorption Elevated CK levels suspected multiple sclerosis myxedema MICROCYTIC ANEMIA low b12 plan Admit to medicine for further management Neurology consult note T3 and T4 levels Pending cortisol levels Pending vitamin D levels Start levothyroxine at 175 mcg daily Lovenox for DVT prophylaxis Regular diet Full code Discussed with RN and SW MRI HEAD IRON PANEL ESR SU GUIAC STOOLS GI CONSULT ALDOLASE mri head with contrast 04/04 replace b12 04/05 BLURRED VISION, LEFT EYE THIS AM NOW RESOLVED Disposition inpatient care, pending neurology consult Surrogate decision maker is the NEEDS DPOA, POA REG ADMIT 36 min pt exam, chart review, > 50% of time spent with exam, chart review, pt care coordination Justifications for Admission Justifications for Admission Other Justification Left lower leg weakness and severe hypothyroidism History of Present Illness History of Present Illness Chief Complaint: Chief Complain: Worsening weakness of her left lower extremity History of Present Illness: HPI: Patient is a 54-year-old female with past medical history of hypothyroidism, goiter status post thyroidectomy, history of unprovoked seizures, who presents to the ED with a 3-day history of worsening weakness of her left lower extremity. Patient states that she has had on and off weakness of her left lower extremity that woke her and get worse but will spontaneously improve. This has been going on for the past 5 to 6 years however it has been becoming more frequent. Her last episode was in May 2019. Patient also experiences right hand weakness. She is unable to hold a pen. Patient does also endorse some unsteadiness during walking and feels like she is about to fall and bumped into objects around her house.Patient denies any numbness or bowel or bladder incontinence patient denies any back pain or fevers. Patient denies any procedures on her back. Patient denies any visual disturbance or diplopia. Denies risky sexual activity. She does endorse being and having 2 children. 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 Patient states that she does have compliance with her thyroid medication and she does take this in the morning before her meals. She does not recall if she is ever had iron deficiency anemia. There are no family history of celiac's disease or multiple sclerosis in the family. Patient was seen in the ED and she was having left lower leg weakness. Patient is able to flex her hip however she is unable to dorsi or plantarflex well with her left foot. Patient's right hand glaze carrier strength is 3 out of 5. Patient's gait is unsteady. Romberg sign is negative Past Medical/Surgical History: PMH/PSH: Past Medical History: Seizure, hypothyroidism, Goiter Past Surgical History: thyroidectomy Allergies: Allergies: Coded Allergies: metoclopramide (Verified Allergy, Intermediate, 04/02/20) Family History: Family History: obesity Social History: Social History: Denies alcohol, drug, tobacco abuse. Vitals Vitals Vital Signs Date Time Temp Pulse Resp B/P (MAP) Pulse Ox O2 Delivery O2 Flow Rate FiO2 04/05/20 07:00 97.6 66 14 129/88 (102) 95 Room Air 97.6 Physical Exam Physical Exam GEN: No apparent distress. Alert and oriented HEENT: Normal cephalic, atraumatic, external auditory canals are patent EYES: Extraocular muscles are intact, pupil are equally round and reactive to light and accommodation MUSCULOSKELETAL: Well developed , well nourished, good range of motion ENDOCRINE: No thyromegaly was palpated LYMPHATICS: No cervical chain or axillary nodes were noted HEMATOPOIETIC: No bruising NECK: Supple, no JVD, no thyromegaly was noted LUNGS: Clear to auscultation in all lung de jesus without rhonchi or wheezing HEART: RRR, S!, S2 present. Peripheral pulses intact, no obvious murmurs noted ABDOMEN: Soft, nontender. Positive bowel sounds, no organomegaly, normal bowel sounds EXTREMITIES: NO ,clubbing, cyanosis, MILD edema. Pedal pulses intact. Negative Homans sign NEUROLOGIC: Normal speech and tone. A&O x 3, Patient is able to flex her hip however she is unable to dorsi or plantarflex well with her left foot. Patient's right hand glaze carrier strength is 3 out of 5. Patient's gait is unsteady. Romberg sign is negative PSYCHIATRIC: Normal affect, normal mood. Stable SKIN: No ulcerations or rashes, good skin turgor, no jaundice VASCULAR: Good capillary refill, neurovascular bundle appears to be intact General: Alert, Oriented X3, Cooperative, No acute distress, Other (larry- orbital edema mild) Heart: Regular rate, Normal S1, Normal S2 Lungs: Clear Abdomen: Normal bowel sounds, Soft, No tenderness Extremities: No clubbing, No cyanosis, No edema Skin: No breakdown, No significant lesion Labs LABS URINE CULTURE Final Final Three or more organisms isolated. Results consistent with colonization or contamination during the collection process. Recollection recommended using a method to minimize contamination. An ID and Sensitivity will be performed when one organism is predominant and a likely pathogen. Testing Performed by: [address] [id number] For Inquires, the Physician may contact the Microbiology department at [phone] Unless otherwise specified, Testing Performed by: [address] [address] For Inquires, the Physician may contact the Microbiology department at [phone] MRI of the brain without contrast 04/04/2020 CLINICAL HISTORY: Left leg weakness. Right hand clumsiness. The patient had a MRI of the brain without contrast yesterday which demonstrated areas of signal abnormality throughout the white matter concerning for a demyelinating disorder such as multiple sclerosis. TECHNIQUE: After the intravenous administration of 25 cc of DOTAREM, enhanced T1-weighted sagittal, axial and coronal images of the brain were obtained. FINDINGS: Comparison is made to the patient's MRI of the brain dated 04/03/2020. The ventricles and sulci are within normal limits in size and configuration. No area of abnormal contrast enhancement is seen. IMPRESSION: No area of abnormal contrast enhancement is seen. Electronically signed by: Asad Fonseca MD (04/04/2020 3:14 PM) [id number] DICTATED and SIGNED BY: ASAD FONSECA MD Assessment and Plan Assessmemt and Plan Problems Medical Problems: (1) E03.9 Status: Acute (2) Left leg weakness Status: Acute Comment Review of Relevant I have reviewed the following items cuong (where applicable) has been applied. Labs Laboratory Tests Test 04/04/20 07:00 04/04/20 08:15 White Blood Count 5.5 x10^3/uL (4.0-11.0) Red Blood Count 5.00 x10^6/uL (3.50-5.40) Hemoglobin 11.6 g/dL (12.0-15.5) Hematocrit 35.7 % (36.0-47.0) Mean Corpuscular Volume 71 fL (79-100) Mean Corpuscular Hemoglobin 23 pg (25-35) Mean Corpuscular Hemoglobin Concent 32 g/dL (31-37) Red Cell Distribution Width 19.1 % (11.5-14.5) Platelet Count 258 x10^3/uL (140-400) Neutrophils (%) (Auto) 55 % (31-73) Lymphocytes (%) (Auto) 35 % (24-48) Monocytes (%) (Auto) 6 % (0-9) Eosinophils (%) (Auto) 4 % (0-3) Basophils (%) (Auto) 1 % (0-3) Neutrophils # (Auto) 3.0 x10^3/uL (1.8-7.7) Lymphocytes # (Auto) 1.9 x10^3/uL (1.0-4.8) Monocytes # (Auto) 0.3 x10^3/uL (0.0-1.1) Eosinophils # (Auto) 0.2 x10^3/uL (0.0-0.7) Basophils # (Auto) 0.1 x10^3/uL (0.0-0.2) Sodium Level 139 mmol/L (136-145) Potassium Level 3.7 mmol/L (3.5-5.1) Chloride Level 104 mmol/L (98-107) Carbon Dioxide Level 29 mmol/L (21-32) Anion Gap 6 (6-14) Blood Urea Nitrogen 11 mg/dL (7-20) Creatinine 0.9 mg/dL (0.6-1.0) Estimated GFR (Cockcroft-Gault) 65.8 BUN/Creatinine Ratio 12 (6-20) Glucose Level 97 mg/dL (70-99) Calcium Level 8.2 mg/dL (8.5-10.1) Total Bilirubin 0.3 mg/dL (0.2-1.0) Aspartate Amino Transf (AST/SGOT) 27 U/L (15-37) Alanine Aminotransferase (ALT/SGPT) 30 U/L (14-59) Alkaline Phosphatase 64 U/L (46-116) Total Protein 6.7 g/dL (6.4-8.2) Albumin 3.4 g/dL (3.4-5.0) Albumin/Globulin Ratio 1.0 (1.0-1.7) Urine Collection Type Unknown Urine Color Yellow Urine Clarity Clear Urine pH 6.0 (<5.0-8.0) Urine Specific [place] 1.020 (1.000-1.030) Urine Protein Negative mg/dL (NEG-TRACE) Urine Glucose (UA) Negative mg/dL (NEG) Urine Ketones (Stick) Negative mg/dL (NEG) Urine Blood Negative (NEG) Urine Nitrite Negative (NEG) Urine Bilirubin Small (NEG) Urine Urobilinogen Dipstick 1.0 mg/dL (0.2 mg/dL) Urine Leukocyte Esterase Moderate (NEG) Urine RBC 1-2 /HPF (0-2) Urine WBC 20-40 /HPF (0-4) Urine Squamous Epithelial Cells Mod /LPF Urine Bacteria Many /HPF (0-FEW) Urine Mucus Marked /LPF Urine Opiates Screen Neg (NEG) Urine Methadone Screen Neg (NEG) Urine Barbiturates Neg (NEG) Urine Phencyclidine Screen Neg (NEG) Urine Amphetamine/Methamphetamine Neg (NEG) Urine Benzodiazepines Screen Pos (NEG) Urine Cocaine Screen Neg (NEG) Urine Cannabinoids Screen Neg (NEG) Urine Ethyl Alcohol Neg (NEG) Microbiology 04/04/20 Urine Culture - Final, Complete Medications Current Medications Ondansetron HCl (Zofran) 4 mg PRN Q8HRS PRN IV NAUSEA/VOMITING; Start 04/02/20 at 10:30; Stop 04/03/20 at 10:29; Status DC Sennosides (Senna) 17.2 mg PRN BID PRN PO CONSTIPATION Last administered on 04/04/20at 20:56; Start 04/02/20 at 14:15 Docusate Sodium (Colace) 100 mg PRN DAILY PRN PO HARD STOOLS; Start 04/02/20 at 14:15; Stop 04/03/20 at 09:11; Status DC Thiamine HCl 100 mg/Dextrose 51 ml @ 102 mls/hr DAILY IV Last administered on 04/04/20at 09:43; Start 04/02/20 at 15:00; Stop 04/05/20 at 00:21; Status DC Ondansetron HCl (Zofran) 4 mg PRN Q6HRS PRN IVP NAUSEA/VOMITING; Start 04/02/20 at 14:15 Potassium Chloride (Klor-Con) 40 meq 1X PRN PO PER PROTOCOL; Start 04/02/20 at 14:15; Status UNV Magnesium Oxide (Magnesium Oxide) 400 mg BID PO ; Start 04/02/20 at 21:00; Stop 04/04/20 at 09:01; Status UNV Potassium Chloride/Water 100 ml @ 100 mls/hr Q1H IV ; Start 04/02/20 at 14:15; Stop 04/02/20 at 18:14; Status UNV Magnesium Sulfate 50 ml @ 25 mls/hr Q24H IV ; Start 04/02/20 at 14:15; Stop 04/04/20 at 16:14; Status UNV Potassium Chloride/Water 100 ml @ 100 mls/hr Q1H PRN IV low k; Start 04/02/20 at 14:15; Status UNV Dextrose (Dextrose 50%-Water Syringe) 12.5 gm PRN Q15MIN PRN IV SEE COMMENTS; Start 04/02/20 at 14:15 Acetaminophen (Tylenol) 650 mg PRN Q4HRS PRN PO TEMP OVER 100.4F OR MILD PAIN Last administered on 04/03/20at 10:31; Start 04/02/20 at 14:15 Docusate Sodium (Colace) 100 mg PRN BID PRN PO HARD STOOLS; Start 04/02/20 at 14:15 Levothyroxine Sodium (Synthroid) 175 mcg DAILY06 PO Last administered on 04/05/20at 08:53; Start 04/03/20 at 06:00 Info (Non-Icu Electrolyte Protocol) 1 ea CONT PRN PRN MC SEE COMMENTS; Start 04/02/20 at 15:00 Diazepam (Valium) 10 mg 1X PRN PRN PO ANXIETY Last administered on 04/03/20at 15:45; Start 04/03/20 at 14:00 Cyanocobalamin (Vitamin B-12) 1,000 mcg DAILY IM Last administered on 04/04/20at 09:44; Start 04/03/20 at 14:00; Stop 04/04/20 at 09:01; Status DC Famotidine (Pepcid) 20 mg QHS PO Last administered on 04/04/20at 20:56; Start 04/03/20 at 21:00 Diazepam (Valium) 10 mg 1X ONCE PO Last administered on 04/04/20at 13:43; Start 04/04/20 at 09:00; Stop 04/04/20 at 09:01; Status DC Vitamin B Complex (Folbic Tablet) 1 tab DAILY PO Last administered on 04/05/20at 08:53; Start 04/04/20 at 11:00 Gadoterate Meglumine (Dotarem) 25 ml 1X ONCE IVP Last administered on 04/04/20at 14:38; Start 04/04/20 at 14:15; Stop 04/04/20 at 14:23; Status DC Cyanocobalamin (Vitamin B-12) 1,000 mcg QMONTH IM ; Start 05/04/20 at 09:00 Thiamine Mononitrate (Vitamin B-1) 100 mg DAILY PO Last administered on 04/05/20at 08:53; Start 04/05/20 at 09:00 Vitals/I & O Vital Sign - Last 24 Hours 04/04/20 04/04/20 04/04/20 04/04/20 11:15 15:00 19:00 23:00 Temp 97.8 97.6 97.9 97.6 97.8 97.6 97.9 97.6 Pulse 73 75 74 69 Resp 16 16 18 18 B/P (MAP) 145/89 (107) 113/66 (82) 140/85 (103) 145/90 (108) Pulse Ox 96 98 96 94 O2 Delivery Room Air Room Air Room Air Room Air 04/05/20 04/05/20 03:00 07:00 Temp 97.6 97.6 97.6 97.6 Pulse 77 66 Resp 18 14 B/P (MAP) 101/70 (80) 129/88 (102) Pulse Ox 95 95 O2 Delivery Room Air Room Air Intake and Output 04/04/20 04/04/20 04/05/20 15:00 23:00 07:00 Intake Total 0 ml Output Total 1 ml Balance 0 ml -1 ml Justicifation of Admission Dx: Justifications for Admission: Justification of Admission Dx: Yes VARGHESE WATKINS MD Apr 05, 2020 09:41
[2020-04-05 11:00] VITALS: BP 136/89
--- NOTE | 2020-04-05 14:08 | PDOC ---
PROGRESS NOTES Date of Service DATE: 04/05/20 TIME: 14:06 Assessment Problems Medical Problems: (1) E03.9 Status: Acute (2) Left leg weakness Status: Acute Right hand weakness and clumsiness, left foot weakness,, also an episode of left eye blurred vision for 2 hours this morning, all could be explained by the hypothyroidism and low B12 levels. The negative MRI contrast study argues against multiple sclerosis Profoundly hypothyroid and low on B12, which can mimic all sorts of neurological issues. History of seizures, resolved. Plan Await additional laboratory studies Rehabilitation modalities, needs inpatient rehab Treatment of hypothyroidism B12 replacement Follow-up with me 4-8 weeks Subjective Had some left eye mild blurred vision for 1 or 2 hours this morning Objective Vital Signs Date Time Temp Pulse Resp B/P (MAP) Pulse Ox O2 Delivery O2 Flow Rate FiO2 04/05/20 11:00 98.7 81 16 136/89 (105) 95 Room Air 98.7 Intake and Output 04/05/20 07:00 Intake Total 0 ml Output Total 1 ml Balance -1 ml Intake Oral 0 ml Output Urine Total 1 ml Stool Total 0 ml # Voids 1 PHYSICAL EXAM Alert. Oriented to time, place and person. PERRL. EOMI. CN: no focal findings. Muscle tone: normal. Muscle strength: 4/5 left foot weakness both dorsi and plantar flexion, 5-/5 right hand; strength is otherwise 5/5 DTR: 2+ Plantar reflex: Flexor Gait: not examined in bed. Sensory exam: Patchy loss, distal left lower extremity, circumferential with a sharp line of demarcation. No cerebellar signs elicited. Review of Relevant I have reviewed the following items cuong (where applicable) has been applied. Labs Laboratory Tests Test 04/04/20 07:00 04/04/20 08:15 White Blood Count 5.5 x10^3/uL (4.0-11.0) Red Blood Count 5.00 x10^6/uL (3.50-5.40) Hemoglobin 11.6 g/dL (12.0-15.5) Hematocrit 35.7 % (36.0-47.0) Mean Corpuscular Volume 71 fL (79-100) Mean Corpuscular Hemoglobin 23 pg (25-35) Mean Corpuscular Hemoglobin Concent 32 g/dL (31-37) Red Cell Distribution Width 19.1 % (11.5-14.5) Platelet Count 258 x10^3/uL (140-400) Neutrophils (%) (Auto) 55 % (31-73) Lymphocytes (%) (Auto) 35 % (24-48) Monocytes (%) (Auto) 6 % (0-9) Eosinophils (%) (Auto) 4 % (0-3) Basophils (%) (Auto) 1 % (0-3) Neutrophils # (Auto) 3.0 x10^3/uL (1.8-7.7) Lymphocytes # (Auto) 1.9 x10^3/uL (1.0-4.8) Monocytes # (Auto) 0.3 x10^3/uL (0.0-1.1) Eosinophils # (Auto) 0.2 x10^3/uL (0.0-0.7) Basophils # (Auto) 0.1 x10^3/uL (0.0-0.2) Sodium Level 139 mmol/L (136-145) Potassium Level 3.7 mmol/L (3.5-5.1) Chloride Level 104 mmol/L (98-107) Carbon Dioxide Level 29 mmol/L (21-32) Anion Gap 6 (6-14) Blood Urea Nitrogen 11 mg/dL (7-20) Creatinine 0.9 mg/dL (0.6-1.0) Estimated GFR (Cockcroft-Gault) 65.8 BUN/Creatinine Ratio 12 (6-20) Glucose Level 97 mg/dL (70-99) Calcium Level 8.2 mg/dL (8.5-10.1) Total Bilirubin 0.3 mg/dL (0.2-1.0) Aspartate Amino Transf (AST/SGOT) 27 U/L (15-37) Alanine Aminotransferase (ALT/SGPT) 30 U/L (14-59) Alkaline Phosphatase 64 U/L (46-116) Total Protein 6.7 g/dL (6.4-8.2) Albumin 3.4 g/dL (3.4-5.0) Albumin/Globulin Ratio 1.0 (1.0-1.7) Urine Collection Type Unknown Urine Color Yellow Urine Clarity Clear Urine pH 6.0 (<5.0-8.0) Urine Specific [place] 1.020 (1.000-1.030) Urine Protein Negative mg/dL (NEG-TRACE) Urine Glucose (UA) Negative mg/dL (NEG) Urine Ketones (Stick) Negative mg/dL (NEG) Urine Blood Negative (NEG) Urine Nitrite Negative (NEG) Urine Bilirubin Small (NEG) Urine Urobilinogen Dipstick 1.0 mg/dL (0.2 mg/dL) Urine Leukocyte Esterase Moderate (NEG) Urine RBC 1-2 /HPF (0-2) Urine WBC 20-40 /HPF (0-4) Urine Squamous Epithelial Cells Mod /LPF Urine Bacteria Many /HPF (0-FEW) Urine Mucus Marked /LPF Urine Opiates Screen Neg (NEG) Urine Methadone Screen Neg (NEG) Urine Barbiturates Neg (NEG) Urine Phencyclidine Screen Neg (NEG) Urine Amphetamine/Methamphetamine Neg (NEG) Urine Benzodiazepines Screen Pos (NEG) Urine Cocaine Screen Neg (NEG) Urine Cannabinoids Screen Neg (NEG) Urine Ethyl Alcohol Neg (NEG) Microbiology 04/04/20 Urine Culture - Final, Complete Medications Current Medications Ondansetron HCl (Zofran) 4 mg PRN Q8HRS PRN IV NAUSEA/VOMITING; Start 04/02/20 at 10:30; Stop 04/03/20 at 10:29; Status DC Sennosides (Senna) 17.2 mg PRN BID PRN PO CONSTIPATION Last administered on 04/04/20at 20:56; Start 04/02/20 at 14:15 Docusate Sodium (Colace) 100 mg PRN DAILY PRN PO HARD STOOLS; Start 04/02/20 at 14:15; Stop 04/03/20 at 09:11; Status DC Thiamine HCl 100 mg/Dextrose 51 ml @ 102 mls/hr DAILY IV Last administered on 04/04/20at 09:43; Start 04/02/20 at 15:00; Stop 04/05/20 at 00:21; Status DC Ondansetron HCl (Zofran) 4 mg PRN Q6HRS PRN IVP NAUSEA/VOMITING; Start 04/02/20 at 14:15 Potassium Chloride (Klor-Con) 40 meq 1X PRN PO PER PROTOCOL; Start 04/02/20 at 14:15; Status UNV Magnesium Oxide (Magnesium Oxide) 400 mg BID PO ; Start 04/02/20 at 21:00; Stop 04/04/20 at 09:01; Status UNV Potassium Chloride/Water 100 ml @ 100 mls/hr Q1H IV ; Start 04/02/20 at 14:15; Stop 04/02/20 at 18:14; Status UNV Magnesium Sulfate 50 ml @ 25 mls/hr Q24H IV ; Start 04/02/20 at 14:15; Stop 04/04/20 at 16:14; Status UNV Potassium Chloride/Water 100 ml @ 100 mls/hr Q1H PRN IV low k; Start 04/02/20 at 14:15; Status UNV Dextrose (Dextrose 50%-Water Syringe) 12.5 gm PRN Q15MIN PRN IV SEE COMMENTS; Start 04/02/20 at 14:15 Acetaminophen (Tylenol) 650 mg PRN Q4HRS PRN PO TEMP OVER 100.4F OR MILD PAIN Last administered on 04/03/20at 10:31; Start 04/02/20 at 14:15 Docusate Sodium (Colace) 100 mg PRN BID PRN PO HARD STOOLS; Start 04/02/20 at 14:15 Levothyroxine Sodium (Synthroid) 175 mcg DAILY06 PO Last administered on 04/05/20at 08:53; Start 04/03/20 at 06:00 Info (Non-Icu Electrolyte Protocol) 1 ea CONT PRN PRN MC SEE COMMENTS; Start 04/02/20 at 15:00 Diazepam (Valium) 10 mg 1X PRN PRN PO ANXIETY Last administered on 04/03/20at 15:45; Start 04/03/20 at 14:00 Cyanocobalamin (Vitamin B-12) 1,000 mcg DAILY IM Last administered on 04/04/20at 09:44; Start 04/03/20 at 14:00; Stop 04/04/20 at 09:01; Status DC Famotidine (Pepcid) 20 mg QHS PO Last administered on 04/04/20at 20:56; Start 04/03/20 at 21:00 Diazepam (Valium) 10 mg 1X ONCE PO Last administered on 04/04/20at 13:43; Start 04/04/20 at 09:00; Stop 04/04/20 at 09:01; Status DC Vitamin B Complex (Folbic Tablet) 1 tab DAILY PO Last administered on 04/05/20at 08:53; Start 04/04/20 at 11:00 Gadoterate Meglumine (Dotarem) 25 ml 1X ONCE IVP Last administered on 04/04/20at 14:38; Start 04/04/20 at 14:15; Stop 04/04/20 at 14:23; Status DC Cyanocobalamin (Vitamin B-12) 1,000 mcg QMONTH IM ; Start 05/04/20 at 09:00 Thiamine Mononitrate (Vitamin B-1) 100 mg DAILY PO Last administered on 04/05/20at 08:53; Start 04/05/20 at 09:00 Vitals/I & O Vital Sign - Last 24 Hours 04/04/20 04/04/20 04/04/20 04/05/20 15:00 19:00 23:00 03:00 Temp 97.6 97.9 97.6 97.6 97.6 97.9 97.6 97.6 Pulse 75 74 69 77 Resp 16 18 18 18 B/P (MAP) 113/66 (82) 140/85 (103) 145/90 (108) 101/70 (80) Pulse Ox 98 96 94 95 O2 Delivery Room Air Room Air Room Air Room Air 04/05/20 04/05/20 04/05/20 07:00 08:00 11:00 Temp 97.6 98.7 97.6 98.7 Pulse 66 81 Resp 14 16 B/P (MAP) 129/88 (102) 136/89 (105) Pulse Ox 95 95 O2 Delivery Room Air Room Air Room Air Intake and Output 04/04/20 04/04/20 04/05/20 15:00 23:00 07:00 Intake Total 0 ml Output Total 1 ml Balance 0 ml -1 ml Images MRI of the brain without contrast [was done with contrast] 04/04/2020 CLINICAL HISTORY: Left leg weakness. Right hand clumsiness. The patient had a MRI of the brain without contrast yesterday which demonstrated areas of signal abnormality throughout the white matter concerning for a demyelinating disorder such as multiple sclerosis. TECHNIQUE: After the intravenous administration of 25 cc of DOTAREM, enhanced T1-weighted sagittal, axial and coronal images of the brain were obtained. FINDINGS: Comparison is made to the patient's MRI of the brain dated 04/03/2020. The ventricles and sulci are within normal limits in size and configuration. No area of abnormal contrast enhancement is seen. IMPRESSION: No area of abnormal contrast enhancement is seen. Justicifation of Admission Dx: Justifications for Admission: Justification of Admission Dx: Yes LUCY JACKSON MD Apr 05, 2020 14:08
[2020-04-05 15:00] VITALS: BP 160/94
[2020-04-05 19:00] VITALS: BP 171/97
[2020-04-05] MEDS: ACETAMINOPHEN 325 MG TABLET. PO PRN (20:47)
[2020-04-05] MEDS: FAMOTIDINE 20 MG TABLET. PO SCH (20:47)
[2020-04-05 23:00] VITALS: BP 157/87
[2020-04-05 23:07] LABS: FECAL OB PT NEGATIVE (NEG)
[2020-04-06 03:00] VITALS: BP 143/79
[2020-04-06] MEDS: ACETAMINOPHEN 325 MG TABLET. PO PRN (05:25)
[2020-04-06] MEDS: LEVOTHYROXINE 175 MCG TABLET PO SCH (05:29)
[2020-04-06 07:00] VITALS: BP 120/78
[2020-04-06] MEDS: THIAMINE 100 MG TABLET. PO SCH (07:52)
[2020-04-06] MEDS: CYANOCOBALAMIN (VITAMIN B-12) 1,000 MCG TABLET. PO SCH (07:52)
[2020-04-06] MEDS: VITAMIN B12,B9,B6 COMPLEX 1 TABLET. PO SCH (07:52)
--- NOTE | 2020-04-06 10:49 | PDOC ---
PROGRESS NOTES Date of Service: DATE: 04/06/20 TIME: 10:47 Chief Complaint Chief Complaint Images: Images Head CT IMPRESSION: No acute intracranial findings. impression Acute left lower extremity and right hand weakness concerning for multiple sclerosis versus hypothyroid myopathy elevated TSH, extreme , concerning for uncontrolled hypothyroidism versus malabsorption Elevated CK levels suspected multiple sclerosis myxedema MICROCYTIC ANEMIA low b12 plan Admit to medicine for further management Neurology consult note T3 and T4 levels Pending cortisol levels Pending vitamin D levels Start levothyroxine at 175 mcg daily Lovenox for DVT prophylaxis Regular diet Full code Discussed with RN and SW MRI HEAD IRON PANEL ESR SU GUIAC STOOLS GI CONSULT ALDOLASE mri head with contrast 04/04 replace b12 po daily 04/05 BLURRED VISION, LEFT EYE THIS AM NOW RESOLVED Disposition inpatient care, pending neurology consult Surrogate decision maker is the NEEDS DPOA, POA REG ADMIT 26 min pt exam, chart review, > 50% of time spent with exam, chart review, pt care coordination Justifications for Admission Justifications for Admission Other Justification Left lower leg weakness and severe hypothyroidism History of Present Illness History of Present Illness Chief Complaint: Chief Complain: Worsening weakness of her left lower extremity History of Present Illness: HPI: Patient is a 54-year-old female with past medical history of hypothyroidism, goiter status post thyroidectomy, history of unprovoked seizures, who presents to the ED with a 3-day history of worsening weakness of her left lower extremity. Patient states that she has had on and off weakness of her left lower extremity that woke her and get worse but will spontaneously improve. This has been going on for the past 5 to 6 years however it has been becoming more frequent. Her last episode was in May 2019. Patient also experiences right hand weakness. She is unable to hold a pen. Patient does also endorse some unsteadiness during walking and feels like she is about to fall and bumped into objects around her house.Patient denies any numbness or bowel or bladder incontinence patient denies any back pain or fevers. Patient denies any procedures on her back. Patient denies any visual disturbance or diplopia. Denies risky sexual activity. She does endorse being and having 2 children. 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 Patient states that she does have com pliance with her thyroid medication and she does take this in the morning before her meals. She does not recall if she is ever had iron deficiency anemia. There are no family history of celiac's disease or multiple sclerosis in the family. Patient was seen in the ED and she was having left lower leg weakness. Patient is able to flex her hip however she is unable to dorsi or plantarflex well with her left foot. Patient's right hand director staffing strength is 3 out of 5. Patient's gait is unsteady. Romberg sign is negative Past Medical/Surgical History: PMH/PSH: Past Medical History: Seizure, hypothyroidism, Goiter Past Surgical History: thyroidectomy Allergies: Allergies: Coded Allergies: metoclopramide (Verified Allergy, Intermediate, 04/02/20) Family History: Family History: obesity Social History: Social History: Denies alcohol, drug, tobacco abuse. Vitals Vitals Vital Signs Date Time Temp Pulse Resp B/P (MAP) Pulse Ox O2 Delivery O2 Flow Rate FiO2 04/06/20 08:00 Room Air 04/06/20 07:00 97.8 71 16 120/78 (92) 96 97.8 Physical Exam Physical Exam GEN: No apparent distress. Alert and oriented HEENT: Normal cephalic, atraumatic, external auditory canals are patent EYES: Extraocular muscles are intact, pupil are equally round and reactive to light and accommodation MUSCULOSKELETAL: Well developed , well nourished, good range of motion ENDOCRINE: No thyromegaly was palpated LYMPHATICS: No cervical chain or axillary nodes were noted HEMATOPOIETIC: No bruising NECK: Supple, no JVD, no thyromegaly was noted LUNGS: Clear to auscultation in all lung de jesus without rhonchi or wheezing HEART: RRR, S!, S2 present. Peripheral pulses intact, no obvious murmurs noted ABDOMEN: Soft, nontender. Positive bowel sounds, no organomegaly, normal bowel sounds EXTREMITIES: NO ,clubbing, cyanosis, MILD edema. Pedal pulses intact. Negative Homans sign NEUROLOGIC: Normal speech and tone. A&O x 3, Patient is able to flex her hip however she is unable to dorsi or plantarflex well with her left foot. Patient's right hand director staffing strength is 3 out of 5. Patient's gait is unsteady. Romberg sign is negative PSYCHIATRIC: Normal affect, normal mood. Stable SKIN: No ulcerations or rashes, good skin turgor, no jaundice VASCULAR: Good capillary refill, neurovascular bundle appears to be intact General: Alert, Oriented X3, Cooperative, No acute distress, Other (larry- orbital edema mild) Heart: Regular rate, Normal S1, Normal S2 Lungs: Clear Abdomen: Normal bowel sounds, Soft, No tenderness Extremities: No clubbing, No cyanosis, No edema Skin: No breakdown, No significant lesion Labs LABS Laboratory Tests Test 04/05/20 20:45 Stool Occult Blood Negative (NEG) Assessment and Plan Assessmemt and Plan Problems Medical Problems: (1) E03.9 Status: Acute (2) Left leg weakness Status: Acute * Independent Goal 1 Assessment * Appropriate - Continue Goal 2 - Transfers Assistance Required * Independent Goal 2 - Transfer Type * Sit to Stand Goal 2 Assessment * Appropriate - Continue Goal 3 - Ambulation Assistance Required * Independent Goal 3 - Ambulation Distance * 100' Goal 3 - Ambulation Device * Roller Walker Goal 3 Assessment * Appropriate - Continue Goal 4 - Stairs Assistance Required * Independent Goal 4 - Number of Stairs * 5-9 Goal 4 - Device on Stairs * Rail on Right * Rail on Left Goal 4 Assessment * Appropriate - Continue Treatment Plan * Therapeutic Exercise * Bed Mobility Training * Transfer training * Gait Training * Neuromuscular Re-Ed * Dynamic Balance Training Frequency of Treatment Expected * 7 visits/week Duration of Treatment Expected * 2 weeks Discharge Recommendations * Acute Rehab facility Discharge Recommendation - DME * Rolling Walker needed Discharge Recommendation Comments * rehab Comment Review of Relevant I have reviewed the following items cuong (where applicable) has been applied. Labs Laboratory Tests Test 04/05/20 20:45 Stool Occult Blood Negative (NEG) Laboratory Tests Test 04/05/20 20:45 Stool Occult Blood Negative (NEG) Microbiology 04/04/20 Urine Culture - Final, Complete Medications Current Medications Ondansetron HCl (Zofran) 4 mg PRN Q8HRS PRN IV NAUSEA/VOMITING; Start 04/02/20 at 10:30; Stop 04/03/20 at 10:29; Status DC Sennosides (Senna) 17.2 mg PRN BID PRN PO CONSTIPATION Last administered on 04/04/20at 20:56; Start 04/02/20 at 14:15 Docusate Sodium (Colace) 100 mg PRN DAILY PRN PO HARD STOOLS; Start 04/02/20 at 14:15; Stop 04/03/20 at 09:11; Status DC Thiamine HCl 100 mg/Dextrose 51 ml @ 102 mls/hr DAILY IV Last administered on 04/04/20at 09:43; Start 04/02/20 at 15:00; Stop 04/05/20 at 00:21; Status DC Ondansetron HCl (Zofran) 4 mg PRN Q6HRS PRN IVP NAUSEA/VOMITING; Start 04/02/20 at 14:15 Potassium Chloride (Klor-Con) 40 meq 1X PRN PO PER PROTOCOL; Start 04/02/20 at 14:15; Status UNV Magnesium Oxide (Magnesium Oxide) 400 mg BID PO ; Start 04/02/20 at 21:00; Stop 04/04/20 at 09:01; Status UNV Potassium Chloride/Water 100 ml @ 100 mls/hr Q1H IV ; Start 04/02/20 at 14:15; Stop 04/02/20 at 18:14; Status UNV Magnesium Sulfate 50 ml @ 25 mls/hr Q24H IV ; Start 04/02/20 at 14:15; Stop 04/04/20 at 16:14; Status UNV Potassium Chloride/Water 100 ml @ 100 mls/hr Q1H PRN IV low k; Start 04/02/20 at 14:15; Status UNV Dextrose (Dextrose 50%-Water Syringe) 12.5 gm PRN Q15MIN PRN IV SEE COMMENTS; Start 04/02/20 at 14:15 Acetaminophen (Tylenol) 650 mg PRN Q4HRS PRN PO TEMP OVER 100.4F OR MILD PAIN Last administered on 04/06/20at 05:25; Start 04/02/20 at 14:15 Docusate Sodium (Colace) 100 mg PRN BID PRN PO HARD STOOLS; Start 04/02/20 at 1 4:15 Levothyroxine Sodium (Synthroid) 175 mcg DAILY06 PO Last administered on 04/06/20at 05:29; Start 04/03/20 at 06:00 Info (Non-Icu Electrolyte Protocol) 1 ea CONT PRN PRN MC SEE COMMENTS; Start 04/02/20 at 15:00 Diazepam (Valium) 10 mg 1X PRN PRN PO ANXIETY Last administered on 04/03/20at 15:45; Start 04/03/20 at 14:00 Cyanocobalamin (Vitamin B-12) 1,000 mcg DAILY IM Last administered on 04/04/20at 09:44; Start 04/03/20 at 14:00; Stop 04/04/20 at 09:01; Status DC Famotidine (Pepcid) 20 mg QHS PO Last administered on 04/05/20at 20:47; Start 04/03/20 at 21:00 Diazepam (Valium) 10 mg 1X ONCE PO Last administered on 04/04/20at 13:43; Start 04/04/20 at 09:00; Stop 04/04/20 at 09:01; Status DC Vitamin B Complex (Folbic Tablet) 1 tab DAILY PO Last administered on 04/06/20at 07:52; Start 04/04/20 at 11:00 Gadoterate Meglumine (Dotarem) 25 ml 1X ONCE IVP Last administered on 04/04/20at 14:38; Start 04/04/20 at 14:15; Stop 04/04/20 at 14:23; Status DC Cyanocobalamin (Vitamin B-12) 1,000 mcg QMONTH IM ; Start 05/04/20 at 09:00 Thiamine Mononitrate (Vitamin B-1) 100 mg DAILY PO Last administered on 04/06/20at 07:52; Start 04/05/20 at 09:00 Cyanocobalamin (Vitamin B-12) 2,000 mcg DAILY PO Last administered on 04/06/20at 07:52; Start 04/06/20 at 09:00 Vitals/I & O Vital Sign - Last 24 Hours 04/05/20 04/05/20 04/05/20 04/05/20 11:00 15:00 19:00 20:05 Temp 98.7 97.5 98.1 98.7 97.5 98.1 Pulse 81 75 84 Resp 16 16 16 B/P (MAP) 136/89 (105) 160/94 (116) 171/97 (121) Pulse Ox 95 97 97 O2 Delivery Room Air Room Air Room Air Room Air 04/05/20 04/06/20 04/06/20 04/06/20 23:00 03:00 07:00 08:00 Temp 97.9 98.1 97.8 97.9 98.1 97.8 Pulse 77 77 71 Resp 16 18 16 B/P (MAP) 157/87 (110) 143/79 (100) 120/78 (92) Pulse Ox 97 94 96 O2 Delivery Room Air Room Air Room Air Room Air Intake and Output 04/05/20 04/05/20 04/06/20 15:00 23:00 07:00 Intake Total 380 ml 380 ml 120 ml Balance 380 ml 380 ml 120 ml Justicifation of Admission Dx: Justifications for Admission: Justification of Admission Dx: Yes VARGHESE WATKINS MD Apr 06, 2020 10:48
[2020-04-06 11:00] VITALS: BP 110/70
--- NOTE | 2020-04-06 13:18 | PDOC ---
PROGRESS NOTES Date of Service DATE: 04/06/20 TIME: 13:17 Assessment Problems Medical Problems: (1) E03.9 Status: Acute (2) Left leg weakness Status: Acute Right hand weakness and clumsiness, left foot weakness,, also an episode of left eye blurred vision for 2 hours this morning, all could be explained by the hypothyroidism and low B12 levels. The negative MRI contrast study argues against multiple sclerosis Profoundly hypothyroid and low on B12, which can mimic all sorts of neurological issues. History of seizures, resolved. Plan Await additional laboratory studies Rehabilitation modalities, needs inpatient rehab Treatment of hypothyroidism B12 replacement SQ monthly at PCP's Follow-up with me 4-8 weeks Subjective Did well in physical therapy today, she believes Objective Vital Signs Date Time Temp Pulse Resp B/P (MAP) Pulse Ox O2 Delivery O2 Flow Rate FiO2 04/06/20 11:00 98.0 74 16 110/70 (83) 95 Room Air 98.0 Intake and Output 04/06/20 07:00 Intake Total 880 ml Balance 880 ml Intake Oral 880 ml # Voids 3 # Bowel Movements 1 PHYSICAL EXAM Alert. Oriented to time, place and person. PERRL. EOMI. CN: no focal findings. Muscle tone: normal. Muscle strength: 4/5 left foot weakness both dorsi and plantar flexion, now 5/5 right hand; strength is otherwise 5/5 DTR: 2+ Plantar reflex: Flexor Gait: not examined in bed. Sensory exam: Patchy loss, distal left lower extremity, circumferential with a sharp line of demarcation. No cerebellar signs elicited. Review of Relevant I have reviewed the following items cuong (where applicable) has been applied. Labs Laboratory Tests Test 04/05/20 20:45 Stool Occult Blood Negative (NEG) Laboratory Tests Test 04/05/20 20:45 Stool Occult Blood Negative (NEG) Microbiology 04/04/20 Urine Culture - Final, Complete Medications Current Medications Ondansetron HCl (Zofran) 4 mg PRN Q8HRS PRN IV NAUSEA/VOMITING; Start 04/02/20 at 10:30; Stop 04/03/20 at 10:29; Status DC Sennosides (Senna) 17.2 mg PRN BID PRN PO CONSTIPATION Last administered on 04/04/20at 20:56; Start 04/02/20 at 14:15 Docusate Sodium (Colace) 100 mg PRN DAILY PRN PO HARD STOOLS; Start 04/02/20 at 14:15; Stop 04/03/20 at 09:11; Status DC Thiamine HCl 100 mg/Dextrose 51 ml @ 102 mls/hr DAILY IV Last administered on 04/04/20at 09:43; Start 04/02/20 at 15:00; Stop 04/05/20 at 00:21; Status DC Ondansetron HCl (Zofran) 4 mg PRN Q6HRS PRN IVP NAUSEA/VOMITING; Start 04/02/20 at 14:15 Potassium Chloride (Klor-Con) 40 meq 1X PRN PO PER PROTOCOL; Start 04/02/20 at 14:15; Status UNV Magnesium Oxide (Magnesium Oxide) 400 mg BID PO ; Start 04/02/20 at 21:00; Stop 04/04/20 at 09:01; Status UNV Potassium Chloride/Water 100 ml @ 100 mls/hr Q1H IV ; Start 04/02/20 at 14:15; Stop 04/02/20 at 18:14; Status UNV Magnesium Sulfate 50 ml @ 25 mls/hr Q24H IV ; Start 04/02/20 at 14:15; Stop 04/04/20 at 16:14; Status UNV Potassium Chloride/Water 100 ml @ 100 mls/hr Q1H PRN IV low k; Start 04/02/20 at 14:15; Status UNV Dextrose (Dextrose 50%-Water Syringe) 12.5 gm PRN Q15MIN PRN IV SEE COMMENTS; Start 04/02/20 at 14:15 Acetaminophen (Tylenol) 650 mg PRN Q4HRS PRN PO TEMP OVER 100.4F OR MILD PAIN Last administered on 04/06/20at 05:25; Start 04/02/20 at 14:15 Docusate Sodium (Colace) 100 mg PRN BID PRN PO HARD STOOLS; Start 04/02/20 at 14:15 Levothyroxine Sodium (Synthroid) 175 mcg DAILY06 PO Last administered on 04/06/20at 05:29; Start 04/03/20 at 06:00 Info (Non-Icu Electrolyte Protocol) 1 ea CONT PRN PRN MC SEE COMMENTS; Start 04/02/20 at 15:00 Diazepam (Valium) 10 mg 1X PRN PRN PO ANXIETY Last administered on 04/03/20at 15:45; Start 04/03/20 at 14:00 Cyanocobalamin (Vitamin B-12) 1,000 mcg DAILY IM Last administered on 04/04/20at 09:44; Start 04/03/20 at 14:00; Stop 04/04/20 at 09:01; Status DC Famotidine (Pepcid) 20 mg QHS PO Last administered on 04/05/20at 20:47; Start 04/03/20 at 21:00 Diazepam (Valium) 10 mg 1X ONCE PO Last administered on 04/04/20at 13:43; Start 04/04/20 at 09:00; Stop 04/04/20 at 09:01; Status DC Vitamin B Complex (Folbic Tablet) 1 tab DAILY PO Last administered on 04/06/20at 07:52; Start 04/04/20 at 11:00 Gadoterate Meglumine (Dotarem) 25 ml 1X ONCE IVP Last administered on 04/04/20at 14:38; Start 04/04/20 at 14:15; Stop 04/04/20 at 14:23; Status DC Cyanocobalamin (Vitamin B-12) 1,000 mcg QMONTH IM ; Start 05/04/20 at 09:00 Thiamine Mononitrate (Vitamin B-1) 100 mg DAILY PO Last administered on 04/06/20at 07:52; Start 04/05/20 at 09:00 Cyanocobalamin (Vitamin B-12) 2,000 mcg DAILY PO Last administered on 04/06/20at 07:52; Start 04/06/20 at 09:00 Vitals/I & O Vital Sign - Last 24 Hours 04/05/20 04/05/20 04/05/20 04/05/20 15:00 19:00 20:05 23:00 Temp 97.5 98.1 97.9 97.5 98.1 97.9 Pulse 75 84 77 Resp 16 16 16 B/P (MAP) 160/94 (116) 171/97 (121) 157/87 (110) Pulse Ox 97 97 97 O2 Delivery Room Air Room Air Room Air Room Air 04/06/20 04/06/20 04/06/20 04/06/20 03:00 07:00 08:00 11:00 Temp 98.1 97.8 98.0 98.1 97.8 98.0 Pulse 77 71 74 Resp 18 16 16 B/P (MAP) 143/79 (100) 120/78 (92) 110/70 (83) Pulse Ox 94 96 95 O2 Delivery Room Air Room Air Room Air Room Air Intake and Output 04/05/20 04/05/20 04/06/20 15:00 23:00 07:00 Intake Total 380 ml 380 ml 120 ml Balance 380 ml 380 ml 120 ml Justicifation of Admission Dx: Justifications for Admission: Justification of Admission Dx: Yes LUCY JACKSON MD Apr 06, 2020 13:18
[2020-04-06 15:00] VITALS: BP 111/69
[2020-04-06 19:00] VITALS: BP 142/86
[2020-04-06] MEDS: FAMOTIDINE 20 MG TABLET. PO SCH (20:46)
[2020-04-06 23:00] VITALS: BP 141/90
[2020-04-07 03:00] VITALS: BP 137/77
[2020-04-07] MEDS: LEVOTHYROXINE 175 MCG TABLET PO SCH (05:39)
[2020-04-07 07:00] VITALS: BP 148/85
--- NOTE | 2020-04-07 09:35 | PDOC ---
Date of Service: DATE: 04/07/20 TIME: 09:32 Subjective: Subjective: Able to put a little weight on foot - better. Says waiting on insurance approval for rehab. No GI complaints. Objective: Objective: No records received. Vital Signs: Vital Signs Date Time Temp Pulse Resp B/P (MAP) Pulse Ox O2 Delivery O2 Flow Rate FiO2 04/07/20 07:00 97.5 72 20 148/85 (106) 95 Room Air 97.5 Imaging: Brain MRI 04/04 IMPRESSION: No area of abnormal contrast enhancement is seen. PE: GEN: NAD LUNGS: CTAB HEART: RRR ABD: S/ND/NT NEURO/PSYCH: A & O 3 A/P: LLE and right hand weakness - better Mild SHOSHANA/B12 deficiency, hypothyroidism - recent 'scopes reportedly normal @ [facility] GERD - controlled w/ H2 isma -- DC per primary. Justicifation of Admission Dx: Justifications for Admission: Justification of Admission Dx: Yes MARIA LUZ GUTIÉRREZ Apr 07, 2020 09:35
[2020-04-07] MEDS: CYANOCOBALAMIN (VITAMIN B-12) 1,000 MCG TABLET. PO SCH (09:40)
[2020-04-07] MEDS: THIAMINE 100 MG TABLET. PO SCH (09:40)
[2020-04-07] MEDS: VITAMIN B12,B9,B6 COMPLEX 1 TABLET. PO SCH (09:40)
--- NOTE | 2020-04-07 10:36 | NUR ---
JEREMIAS following for discharge planning. Spoke with RN and reviewed chart. JEREMIAS phoned and faxed updated clinicals to Sher with [facility] acute rehab. Awaiting insurance authorization. JEREMIAS following. Addendum: 04/07/20 at 1635 by HEIDY MCDOWELL Insurance authorization approved. JEREMIAS requested discharge orders from Dr. Adams. Phoned and faxed discharge orders to [facility] rehab. transport arranged for [id number]. RN to call report. No further JEREMIAS needs at this time.
--- NOTE | 2020-04-07 10:56 | PDOC ---
PROGRESS NOTES Date of Service DATE: 04/07/20 TIME: 10:54 Assessment Problems Medical Problems: (1) E03.9 Status: Acute (2) Left leg weakness Status: Acute Right hand weakness and clumsiness, left foot weakness,, also an episode of left eye blurred vision for 2 hours this morning, all could be explained by the hypothyroidism and low B12 levels. The negative MRI contrast study argues against multiple sclerosis Profoundly hypothyroid and low on B12, which can mimic all sorts of neurological issues. History of seizures, resolved. Plan Still waiting on "insurance [employer]" approval for her inpatient rehab Await additional laboratory studies Rehabilitation modalities, needs inpatient rehab Treatment of hypothyroidism B12 replacement SQ monthly at PCP's Follow-up with me 4-8 weeks Subjective No complaints Objective Vital Signs Date Time Temp Pulse Resp B/P (MAP) Pulse Ox O2 Delivery O2 Flow Rate FiO2 04/07/20 07:00 97.5 72 20 148/85 (106) 95 Room Air 97.5 Intake and Output 04/07/20 07:00 Intake Total 910 ml Balance 910 ml Intake Oral 910 ml # Voids 1 PHYSICAL EXAM Alert. Oriented to time, place and person. PERRL. EOMI. CN: no focal findings. Muscle tone: normal. Muscle strength: 4/5 left foot weakness both dorsi and plantar flexion, now 5/5 right hand; strength is otherwise 5/5 DTR: 2+ Plantar reflex: Flexor Gait: not examined in bed. Sensory exam: Patchy loss, distal left lower extremity, circumferential with a sharp line of demarcation. No cerebellar signs elicited. Review of Relevant I have reviewed the following items cuong (where applicable) has been applied. Labs Laboratory Tests Test 04/05/20 20:45 Stool Occult Blood Negative (NEG) Microbiology 04/04/20 Urine Culture - Final, Complete Medications Current Medications Ondansetron HCl (Zofran) 4 mg PRN Q8HRS PRN IV NAUSEA/VOMITING; Start 04/02/20 at 10:30; Stop 04/03/20 at 10:29; Status DC Sennosides (Senna) 17.2 mg PRN BID PRN PO CONSTIPATION Last administered on 04/04/20at 20:56; Start 04/02/20 at 14:15 Docusate Sodium (Colace) 100 mg PRN DAILY PRN PO HARD STOOLS; Start 04/02/20 at 14:15; Stop 04/03/20 at 09:11; Status DC Thiamine HCl 100 mg/Dextrose 51 ml @ 102 mls/hr DAILY IV Last administered on 04/04/20at 09:43; Start 04/02/20 at 15:00; Stop 04/05/20 at 00:21; Status DC Ondansetron HCl (Zofran) 4 mg PRN Q6HRS PRN IVP NAUSEA/VOMITING; Start 04/02/20 at 14:15 Potassium Chloride (Klor-Con) 40 meq 1X PRN PO PER PROTOCOL; Start 04/02/20 at 14:15; Status UNV Magnesium Oxide (Magnesium Oxide) 400 mg BID PO ; Start 04/02/20 at 21:00; Stop 04/04/20 at 09:01; Status UNV Potassium Chloride/Water 100 ml @ 100 mls/hr Q1H IV ; Start 04/02/20 at 14:15; Stop 04/02/20 at 18:14; Status UNV Magnesium Sulfate 50 ml @ 25 mls/hr Q24H IV ; Start 04/02/20 at 14:15; Stop 04/04/20 at 16:14; Status UNV Potassium Chloride/Water 100 ml @ 100 mls/hr Q1H PRN IV low k; Start 04/02/20 at 14:15; Status UNV Dextrose (Dextrose 50%-Water Syringe) 12.5 gm PRN Q15MIN PRN IV SEE COMMENTS; Start 04/02/20 at 14:15 Acetaminophen (Tylenol) 650 mg PRN Q4HRS PRN PO TEMP OVER 100.4F OR MILD PAIN Last administered on 04/06/20at 05:25; Start 04/02/20 at 14:15 Docusate Sodium (Colace) 100 mg PRN BID PRN PO HARD STOOLS; Start 04/02/20 at 14:15 Levothyroxine Sodium (Synthroid) 175 mcg DAILY06 PO Last administered on 04/07/20at 05:39; Start 04/03/20 at 06:00 Info (Non-Icu Electrolyte Protocol) 1 ea CONT PRN PRN MC SEE COMMENTS; Start 04/02/20 at 15:00 Diazepam (Valium) 10 mg 1X PRN PRN PO ANXIETY Last administered on 04/03/20at 15:45; Start 04/03/20 at 14:00; Stop 04/06/20 at 15:58; Status DC Cyanocobalamin (Vitamin B-12) 1,000 mcg DAILY IM Last administered on 04/04/20at 09:44; Start 04/03/20 at 14:00; Stop 04/04/20 at 09:01; Status DC Famotidine (Pepcid) 20 mg QHS PO Last administered on 04/06/20at 20:46; Start 04/03/20 at 21:00 Diazepam (Valium) 10 mg 1X ONCE PO Last administered on 04/04/20at 13:43; Start 04/04/20 at 09:00; Stop 04/04/20 at 09:01; Status DC Vitamin B Complex (Folbic Tablet) 1 tab DAILY PO Last administered on 04/07/20at 09:40; Start 04/04/20 at 11:00 Gadoterate Meglumine (Dotarem) 25 ml 1X ONCE IVP Last administered on 04/04/20at 14:38; Start 04/04/20 at 14:15; Stop 04/04/20 at 14:23; Status DC Cyanocobalamin (Vitamin B-12) 1,000 mcg QMONTH IM ; Start 05/04/20 at 09:00 Thiamine Mononitrate (Vitamin B-1) 100 mg DAILY PO Last administered on 04/07/20at 09:40; Start 04/05/20 at 09:00 Cyanocobalamin (Vitamin B-12) 2,000 mcg DAILY PO Last administered on 04/07/20at 09:40; Start 04/06/20 at 09:00 Vitals/I & O Vital Sign - Last 24 Hours 04/06/20 04/06/20 04/06/20 04/06/20 11:00 15:00 19:00 20:02 Temp 98.0 98.2 97.7 98.0 98.2 97.7 Pulse 74 77 78 Resp 16 16 16 B/P (MAP) 110/70 (83) 111/69 (83) 142/86 (104) Pulse Ox 95 98 97 O2 Delivery Room Air Room Air Room Air Room Air 04/06/20 04/07/20 04/07/20 23:00 03:00 07:00 Temp 98.4 98.6 97.5 98.4 98.6 97.5 Pulse 81 84 72 Resp 16 16 20 B/P (MAP) 141/90 (107) 137/77 (97) 148/85 (106) Pulse Ox 96 95 95 O2 Delivery Room Air Room Air Room Air Intake and Output 04/06/20 04/06/20 04/07/20 15:00 23:00 07:00 Intake Total 380 ml 380 ml 150 ml Balance 380 ml 380 ml 150 ml Justicifation of Admission Dx: Justifications for Admission: Justification of Admission Dx: Yes LUCY JACKSON MD Apr 07, 2020 10:56
[2020-04-07 11:00] VITALS: BP 133/79
[2020-04-07 14:44] VITALS: BP 123/92
[2020-04-07] MEDS ORDERED: CYAN-25 PO (16:13)
[2020-04-07] MEDS ORDERED: LEVO175T5 PO (16:13)
[2020-04-07] MEDS ORDERED: CYAN1TAB19 PO (16:13)
[2020-04-07] MEDS ORDERED: THIA100T22 PO (16:13)
--- NOTE | 2020-04-07 16:35 | DISCH ---
DISCHARGE INSTRUCTIONS Condition on Discharge Condition on Discharge: Stable Activity After Discharge Activity Instructions for Disc: Activity as tolerated Community/Resources/Services Services at Discharge: PT EVALUATE & TREAT, OT Evaluate & Treat JENNIFER LYMAN MD Apr 07, 2020 16:35
--- NOTE | 2020-04-07 16:43 | PDOC ---
[employer] PROGRESS NOTE Date of Service DOS: DATE: 04/07/20 TIME: 16:41 Chief Complaint Chief Complaint Images: Images Head CT IMPRESSION: No acute intracranial findings. impression Acute left lower extremity and right hand weakness concerning for multiple sclerosis versus hypothyroid myopathy elevated TSH, extreme , concerning for uncontrolled hypothyroidism versus malabsorption Elevated CK levels suspected multiple sclerosis myxedema MICROCYTIC ANEMIA low b12 plan Admit to medicine for further management Neurology consult note T3 and T4 levels Pending cortisol levels Pending vitamin D levels Start levothyroxine at 175 mcg daily Lovenox for DVT prophylaxis Regular diet Full code Discussed with RN and JEREMIAS MRI HEAD IRON PANEL ESR SU GUIAC STOOLS GI CONSULT ALDOLASE mri head with contrast 04/04 replace b12 po daily 04/05 BLURRED VISION, LEFT EYE THIS AM NOW RESOLVED 04/07 Patient symptoms improved, still with some weakness. She is agreeable to discharge to acute rehab. Disposition inpatient care, pending neurology consult Surrogate decision maker is the NEEDS DPOA, POA Justifications for Admission Justifications for Admission Other Justification Left lower leg weakness and severe hypothyroidism History of Present Illness History of Present Illness Chief Complaint: Chief Complain: Worsening weakness of her left lower extremity History of Present Illness: HPI: Patient is a 54-year-old female with past medical history of hypothyroidism, goiter status post thyroidectomy, history of unprovoked seizures, who presents to the ED with a 3-day history of worsening weakness of her left lower extremity. Patient states that she has had on and off weakness of her left lower extremity that woke her and get worse but will spontaneously improve. This has been going on for the past 5 to 6 years however it has been becoming more frequent. Her last episode was in May 2019. Patient also experiences right hand weakness. She is unable to hold a pen. Patient does also endorse some unsteadiness during walking and feels like she is about to fall and bumped into objects around her house.Patient denies any numbness or bowel or bladder incontinence patient denies any back pain or fevers. Patient denies any procedures on her back. Patient denies any visual disturbance or diplopia. Denies risky sexual activity. She does endorse being and having 2 children. She is a [id number] mom. Patient states that she does have compliance with her thyroid medication and she does take this in the morning before her meals. She does not recall if she is ever had iron deficiency anemia. There are no family history of celiac's disease or multiple sclerosis in the family. Patient was seen in the ED and she was having left lower leg weakness. Patient is able to flex her hip however she is unable to dorsi or plantarflex well with her left foot. Patient's right hand reinforcing bar setter strength is 3 out of 5. Patient's gait is unsteady. Romberg sign is negative Past Medical/Surgical History: PMH/PSH: Past Medical History: Seizure, hypothyroidism, Goiter Past Surgical History: thyroidectomy Allergies: Allergies: Coded Allergies: metoclopramide (Verified Allergy, Intermediate, 04/02/20) Family History: Family History: obesity Social History: Social History: Denies alcohol, drug, tobacco abuse. Vitals/I&O Vitals/I&O: Vital Signs Date Time Temp Pulse Resp B/P (MAP) Pulse Ox O2 Delivery O2 Flow Rate FiO2 04/07/20 14:44 98.0 88 20 123/92 (102) 97 Room Air 98.0 I & O 04/06/20 04/06/20 04/07/20 15:00 23:00 07:00 Intake Total 380 ml 380 ml 150 ml Balance 380 ml 380 ml 150 ml Physical Exam Physical Exam: GEN: No apparent distress. Alert and oriented HEENT: Normal cephalic, atraumatic, external auditory canals are patent EYES: Extraocular muscles are intact, pupil are equally round and reactive to light and accommodation MUSCULOSKELETAL: Well developed , well nourished, good range of motion ENDOCRINE: No thyromegaly was palpated LYMPHATICS: No cervical chain or axillary nodes were noted HEMATOPOIETIC: No bruising NECK: Supple, no JVD, no thyromegaly was noted LUNGS: Clear to auscultation in all lung de jesus without rhonchi or wheezing HEART: RRR, S!, S2 present. Peripheral pulses intact, no obvious murmurs noted ABDOMEN: Soft, nontender. Positive bowel sounds, no organomegaly, normal bowel sounds EXTREMITIES: NO ,clubbing, cyanosis, MILD edema. Pedal pulses intact. Negative Homans sign NEUROLOGIC: Normal speech and tone. A&O x 3, Patient is able to flex her hip however she is unable to dorsi or plantarflex well with her left foot. Patient's right hand reinforcing bar setter strength is 3 out of 5. Patient's gait is unsteady. Romberg sign is negative PSYCHIATRIC: Normal affect, normal mood. Stable SKIN: No ulcerations or rashes, good skin turgor, no jaundice VASCULAR: Good capillary refill, neurovascular bundle appears to be intact General: Alert, Oriented X3, Cooperative, No acute distress, Other (larry- orbital edema mild) Heart: Regular rate, Normal S1, Normal S2 Lungs: Clear Abdomen: Normal bowel sounds, Soft, No tenderness Extremities: No clubbing, No cyanosis, No edema Skin: No breakdown, No significant lesion Assessment and Plan Assessmemt and Plan Problems Medical Problems: (1) E03.9 Status: Acute (2) Left leg weakness Status: Acute Comment Review of Relevant I have reviewed the following items cuong (where applicable) has been applied. Justifications for Admission Other Justification Left lower leg weakness and severe hypothyroidism JENNIFER LYMAN MD Apr 07, 2020 16:43
--- NOTE | 2020-04-07 16:48 | PDOC3 ---
Discharge Summary Visit Information Date of Admission: Apr 02, 2020 Date of Discharge: Apr 07, 2020 Final Diagnosis Problems Medical Problems: (1) E03.9 Status: Acute (2) Left leg weakness Status: Acute Brief Hospital Course Allergies Allergies Coded Allergies Type Severity Reaction Last Updated Verified metoclopramide Allergy Intermediate 04/02/20 Yes Vital Signs Vital Signs Date Time Temp Pulse Resp B/P (MAP) Pulse Ox O2 Delivery O2 Flow Rate FiO2 04/07/20 14:44 98.0 88 20 123/92 (102) 97 Room Air 98.0 Lab Results Laboratory Tests Test 04/05/20 20:45 Stool Occult Blood Negative (NEG) Brief Hospital Course Ms. Wisdom is a 54 old female who presented with hypothyroidism, anemia, and vitamin B12 deficiency. Consult placed to neurology and GI. Her thyroid medication was increased with outpatient follow-up. She was recommended vitamin B-12 replacement, to be performed by her PCP. She was accepted to inpatient acute rehab, stable for discharge. Discharge Information Condition at Discharge: Improved Follow Up: Weeks Disposition/Orders: D/C to Another Facility Scheduled Cyanocobalamin (Vitamin B-12) (Vitamin B-12) 1,000 Mcg Tablet, 2,000 MCG PO DAILY for B12 deficiency, #30 Ref 1 Prescribed by: JENNIFER LYMAN MD on 04/07/20 1613 Cyanocobalamin/Fa/Pyridoxine (Folbic Tablet) 1 Each Tablet, 1 TAB PO DAILY for Vit B12 deficiency, #30 Ref 1 Prescribed by: JENNIFER LYMAN MD on 04/07/20 1613 Levothyroxine Sodium (Levothyroxine Sodium) 175 Mcg Tablet, 175 MCG PO DAILY06 for hypothyroid, #30 Prescribed by: JENNIFER LYMAN MD on 04/07/20 1613 Thiamine Mononitrate (Vitamin B-1) 100 Mg Tablet, 100 MG PO DAILY for B12 deficiency, #30 Ref 1 Prescribed by: JENNIFER LYMAN MD on 04/07/20 1613 Justicifation of Admission Dx: Justifications for Admission: Justification of Admission Dx: Yes JENNIFER LYMAN MD Apr 07, 2020 16:48
--- NOTE | 2020-04-07 17:00 | NUR ---
DISCHARGE PAPERWORK PREPARED AND COPY GIVEN TO PATIENT PER HER REQUEST, SALINE LOCK REMOVED FROM RIGHT AC AREA, PATIENT TOLERATED WITHOUT COMPLAINTS, ALL PERSONAL BELONGINGS GATHERED AND PLACED IN BAGS PER THE PATIENT AND PARKING CONTROL OFFICER ON THE UNIT, AWAITING TRANSPORT AT THIS TIME.
[2020-04-07] MEDS: ACETAMINOPHEN 325 MG TABLET. PO PRN (17:11)
--- NOTE | 2020-04-07 17:15 | NUR ---
TRANSPORT FROM [facility] HERE, PATIENT ASSISTED UP TO CHAIR PER THIS LIFE SCIENCES DIRECTOR AND ALL PERSONAL BELONGINGS GIVEN TO PATIENT, EMOTIONAL SUPPORT GIVEN PATIENT LEAVES THE UNIT PER W/C, WILL NOTIFY [facility] FOR REPORT.
[2020-04-07 19:09] LABS: ANA INTERP Negative (.)
[2020-05-04] MEDS ORDERED: CYANOCOBALAMIN (VITAMIN B-12) 1,000 MCG/ML VIAL IM SCH (09:00)
== END 2020-04-07 17:15 | DRG 645 ==
LOC: ER 08:02 → ED HOLD 10:10 → OBSVTOIN 10:10 → 5 NORTH 11:39
PROVIDERS: ADMIT Internal Medicine; ATTEND Internal Medicine
DX: E03.9 Hypothyroidism, unspecified (principal); D50.9 Iron deficiency anemia, unspecified; E53.8 Deficiency of other specified B group vitamins; F17.210 Nicotine dependence, cigarettes, uncomplicated; I73.9 Peripheral vascular disease, unspecified; E04.9 Nontoxic goiter, unspecified; R13.10 Dysphagia, unspecified; R56.9 Unspecified convulsions; Z79.890 Hormone replacement therapy; Z81.8 Family history of other mental and behavioral disorders; Z82.0 Family history of epilepsy and other diseases of the nervous system; Z82.3 Family history of stroke; Z82.49 Family history of ischemic heart disease and other diseases of the circulatory system; Z83.3 Family history of diabetes mellitus; Z90.711 Acquired absence of uterus with remaining cervical stump; K21.9 Gastro-esophageal reflux disease without esophagitis
CPT/HCPCS: 36415; 70450; 70551; 70552; 71045; 80048; 80053; 80307; 81001; 82274; 82306; 82533; 82550; 82607; 82728; 83540; 83550; 83735; 84100; 84439; 84443; 84480; 84481; 85025; 86038; 86140; 86703; 87086; 93005; 99285; 99406; A9575; J3411; J3420; J7060; 97110-GO; 97110-GP; 97116-GP; 97530-GO; 97530-GP; 97535-GO; G0378